=== PATIENT | male | born 1955 | race Caucasian/White ===

== ENCOUNTER 2023-06-15 09:28 | Outpatient (OUT) | payer MEDICARE, OTHER, SELFPAY ==
[2023-06-15 10:25] LABS: Basophils Percent Auto 0.4 % (0.2-2.0); Eosinophils Absolute Auto 0.1 10^3/uL (0.0-0.7); Eosinophils Percent Auto 1.3 % (0.9-7.0); Hematocrit 43.8 % (42.0-54.0); Hemoglobin 14.4 g/dL (14.0-18.0); Immature Granulocytes Abs Auto 0.01 10^3/uL (0.00-0.03); Immature Granulocytes Pct Auto 0.2 % (0.0-0.5); Lymphocytes Absolute Auto 1.6 10^3/uL (1.2-3.8); Lymphocytes Percent Auto 34.8 % (20.5-60.0); Mean Corpuscular HGB Conc 32.9 g/dL (29.9-35.2); Mean Corpuscular Hemoglobin 30.1 pg (25.9-34.0); Mean Corpuscular Volume 91.4 fL (80.0-94.0); Mean Platelet Volume 9.5 fL (9.5-13.5); Monocytes Absolute Auto 0.6 10^3/uL (0.3-0.8); Monocytes Percent Auto 12.4 % (1.7-12.0); Neutrophils Absolute Auto 2.4 10^3/uL (1.4-6.5); Neutrophils Percent Auto 50.9 % (43.0-75.0); Platelet Count 270 10^3/uL (150-450); Red Blood Count 4.79 10^6/uL (4.70-6.10); Red Cell Distribution Width 12.6 % (11.0-15.0); White Blood Count 4.7 10^3/uL (4.0-11.0)
[2023-06-15 10:28] LABS: BUN Creatinine Ratio 19.3; Carbon Dioxide 32.2 mmol/L (21.0-32.0); Chloride 101 mmol/L (98-107); Chol HDL Ratio 3.7; Cholesterol 162 mg/dL (<=200); Estimated GFR (African America >60 (>=60); Estimated GFR (Non-African Ame >60 (>=60); Glucose 129 mg/dL (74-106); HDL Cholesterol 44 mg/dL (40-60); LDL Cholesterol Calculated 89.4 mg/dL; Potassium 4.2 mmol/L (3.5-5.1); Sodium 141 mmol/L (136-145); Triglycerides 143 mg/dL (<=150); VLDL CHOLESTEROL 28.6 mg/dL
[2023-06-15 10:31] LABS: Microalbumin Urine Random <1.3 mg/dL (<=30.0)
[2023-06-15 11:42] LABS: Estimated Average Glucose 128 mg/dL; Glycohemoglobin A1C 6.1 % (4.5-6.2)
== END 2023-06-15 09:29 | disposition home or self-care (01) ==
LOC: LAB 09:33
PROVIDERS: PCP Internal Medicine; Visit Provider Internal Medicine
DX: E11.65 Type 2 diabetes mellitus with hyperglycemia (principal); I10 Essential (primary) hypertension; E78.00 Pure hypercholesterolemia, unspecified; Z12.5 Encounter for screening for malignant neoplasm of prostate
CPT/HCPCS: 36415; 80048; 80061; 82043; 83036; 85025; G0103

== ENCOUNTER 2023-10-01 10:58 | Outpatient (OUT) | payer MEDICARE, OTHER, SELFPAY ==
--- NOTE | 2023-10-01 | XR_ITS ---
The [address] [address] Patient Name: OMER FRIED MRN: [id number] date: 1955 Sex: M Assigned Patient Location: Current Patient Location: Accession/Order Number: [id number] Exam Date: 10/01/2023 11:00 Report Date: 10/01/2023 11:42 At the request of: DEBORAH JIMENEZ Procedure: XR ankle LT min 3V PROCEDURE: XR ankle LT min 3V COMPARISON: None. HISTORY: LEFT ANKLE PAIN FINDINGS: BONES:Contour deformity of the distal tibia and fibula consistent with remote healed fractures. 2 screws through the distal tibial metaphysis. 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 SOFT TISSUES:Moderate soft tissue swelling EFFUSION:None visible. OTHER: Negative. 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
--- OUTSIDE RECORDS SUMMARY | 2023-10-01 11:14 | XMS_ITS | CCD ---
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 Role Phone GUSTABO, DR JOE Admitting Unavailable GUSTABO, DR JOE Attending Unavailable GUSTABO, DR JOE Primary Care Unavailable GUSTABO, DR JOE Consulting Unavailable GUSTABO, DR JOE Admitting Unavailable GUSTABO, DR JOE Attending Unavailable GUSTABO, DR JOE Primary Care Unavailable GUSTABO, DR JOE Consulting Unavailable ANTONIETTA, DR CED Andino Consulting Unavailable Gustabo, Chace Unavailable Magi Greenwood Unavailable Allergies Allergy Classification Reported Allergen(s) Allergy Type Date of Onset Reaction(s) Facility (1 source) Penicillins Drug allergy (disorder) 04-04-20 13 [facility] Repository (7 sources) amLODIPine Drug Allergy Unknown Teravac Other (7 sources) Substance with penicillin structure and antibacterial mechanism of action (substance) Drug allergy Unknown Teravac Other (2 sources) patient allergy list reviewed by nurse or physicia Propensity to adverse reactions 06-09-19 14 Comment:Done Teravac Other Medications Current Medications Medication Drug Class(es) Dates Sig (Normalized) Sig (Original) amLODIPine 5 mg oral tablet (7 sources) Dihydropyridine Calcium Channel Alec amLODIPine Besylate 5 MG TAKE 1 TABLET BY MOUTH EVERY DAY Orally Once a day for 90 days Active doxycycline hyclate 100 mg oral capsule (8 sources) Tetracycline-class Drug Start: 02-26-2023 take 1 capsule by mouth twice daily Doxycycline Hyclate 100 MG 1 capsule Orally twice daily for 10 days Jan, Active etodolac 500 mg oral tablet (7 sources) Nonsteroidal Anti-inflammatory Drug take 1 tablet by mouth twice daily Etodolac 500 MG TAKE 1 TABLET BY MOUTH TWICE A DAY for 90 Active finasteride 5 mg oral tablet (7 sources) 5-alpha Reductase Inhibitor take 1 tablet by mouth every twenty-four hours Finasteride 5 MG 1 tablet Orally Once a day Active Completed/Discontinued Medications Medication Drug Class(es) Dates Sig (Normalized) Sig (Original) OneTouch Ultra - (2 sources) OneTouch Ultra - USE TO TEST BLOOD SUGAR ONCE DAILY for 90 Not-Taking/PRN OneTouch Ultra - USE TO TEST BLOOD SUGAR ONCE DAILY for 90 Active sildenafil 100 mg oral tablet (7 sources) Phosphodiesterase 5 Inhibitor take 1 tablet by mouth every twenty-four hours Sildenafil Citrate 100 MG 1 tablet as needed Orally Once a day Not-Taking/PRN triamcinolone acetonide 40 mg/ml injectable suspension (4 sources) Corticosteroid Start: 2022 Kenalog-40 Jan, 60 mg Problems Active Problems Problem Classification Problem Date Documented Da te Episodic/Chronic Acute bronchitis (1 source) Acute bronchitis due to other specified organisms Episodic Coronary atherosclerosis and other heart disease (13 sources) Coronary artery spasm; Translations: [Angina pectoris with documented spasm] Onset: 09-20-2018 Resolved: 10-02-2019 Chronic Diabetes mellitus with complications (16 sources) Type 2 diabetes mellitus with hyperglycemia; Translations: [Type 2 diabetes mellitus] Onset: 04-21-2022 Chronic Disorders of lipid metabolism (12 sources) Pure hypercholesterolemia ; Translations: [Familial hypercholesterolemia ] Resolved: 10-02-2019 Chronic Esophageal disorders (3 sources) Gastro-esophageal reflux disease with esophagitis; Translations: [Gastroesophageal reflux disease with esophagitis without hemorrhage] Chronic Esophageal disorders (6 sources) Esophageal disorders; Translations: [Gastroesophageal reflux disease with esophagitis without hemorrhage] Essential hypertension (16 sources) Essential (primary) hypertension; Translations: [Essential hypertension] Onset: 04-27-2022 Resolved: 10-02-2019 Chronic Fracture of lower limb (4 sources) Closed fracture of shaft of tibia; Translations: [Closed fracture of shaft of tibia] Episodic Fracture of upper limb (2 sources) Closed fracture of base of thumb; Translations: [Closed fracture of base of thumb (first) metacarpal bone(s)] Episodic Genitourinary symptoms and ill-defined conditions (1 source) Nocturia Episodic Hyperplasia of prostate (8 sources) Nocturia due to benign prostatic hypertrophy; Translations: [Benign prostatic hyperplasia with lower urinary tract symptoms] Chronic Immunizations and screening for infectious disease (2 sources) Vaccination given; Translations: [Encounter for immunization] Episodic Joint disorders and dislocations; trauma-related (9 sources) Traumatic arthropathy of the ankle and/or foot; Translations: [Traumatic arthropathy, right ankle and foot] Onset: 10-04-2015 Chronic Malaise and fatigue (12 sources) Other fatigue; Translations: [Fatigue] Onset: 09-20-2018 Resolved: 10-02-2019 Episodic Osteoarthritis (15 sources) Unilateral primary osteoarthritis, right knee; Translations: [Osteoarthritis of right knee joint] Onset: 08-19-2022 Chronic Other and unspecified benign neoplasm (2 sources) Benign neoplasm of colon; Translations: [Benign neoplasm of colon] Episodic Other connective tissue disease (9 sources) Disorder of soft tissue; Translations: [Other specified soft tissue disorders] Episodic Other diseases of veins and lymphatics (11 sources) Peripheral venous insufficiency; Translations: [Venous insufficiency (chronic) (peripheral)] Onset: 10-04-2015 Resolved: 10-02-2019 Episodic Other diseases of veins and lymphatics (3 sources) Venous insufficiency (chronic) (peripheral) Episodic Other injuries and conditions due to external causes (2 sources) Old healed fracture of bone ; Translations: [Personal history of (healed) traumatic fracture] Episodic Other injuries and conditions due to external causes (2 sources) History of fall; Translations: [History of falling] Episodic Other male genital disorders (9 sources) Impotence of organic origin; Translations: [Erectile dysfunction due to arterial insufficiency] Onset: 09-25-2018 Resolved: 10-02-2019 Chronic Other nutritional; endocrine; and metabolic disorders (2 sources) Obesity; Translations: [Obesity, unspecified] Chronic Other nutritional; endocrine; and metabolic disorders (2 sources) Morbid obesity; Translations: [Morbid (severe) obesity due to excess calories] Chronic Other skin disorders (9 sources) Male pattern alopecia; Translations: [Androgenic alopecia, unspecified] Episodic Other skin disorders (6 sources) Skin tag; Translations: [Other hypertrophic disorders of the skin] Episodic Other skin disorders (6 sources) Inflamed seborrheic keratosis; Translations: [Inflamed seborrheic keratosis] Episodic Other skin disorders (1 source) Other hypertrophic disorders of the skin Episodic Other skin disorders (1 source) Inflamed seborrheic keratosis Episodic Other upper respiratory disease (13 sources) Allergic rhinitis due to pollen; Translations: [Allergic rhinitis due to pollen] Chronic Other upper respiratory disease (1 source) Allergic rhinitis due to pollen Chronic Residual codes; unclassified (9 sources) Obstructive sleep apnea syndrome; Translations: [Obstructive sleep apnea (adult) (pediatric)] Chronic Residual codes; unclassified (3 sources) Obstructive sleep apnea (adult) (pediatric) Chronic Residual codes; unclassified (2 sources) Immunization refused ; Translations: [Immunization not carried out because of patient refusal] Episodic Skin and subcutaneous tissue infections (15 sources) Cellulitis of right lower limb; Translations: [Cellulitis of right lower limb] Onset: 01-26-2014 Resolved: 11-12-2021 Episodic Superficial injury; contusion (9 sources) Abrasion, knee; Translations: [Abrasion, right knee, initial encounter] Episodic Past or Other Problems Problem Classification Problem Date Documented Da te Episodic/Chronic Diabetes mellitus without complication (2 sources) Impaired fasting glycemia; Translations: [Impaired fasting glucose] Resolved: 10-02-2019 Episodic Disorders of teeth and jaw (2 sources) Jaw pain; Translations: [Jaw pain] Onset: 09-04-2015 Resolved: 10-02-2019 Episodic Other ear and sense organ disorders (2 sources) Bilateral tinnitus; Translations: [Tinnitus, bilateral] Onset: 09-04-2015 Resolved: 10-02-2019 Episodic Other endocrine disorders (2 sources) Testicular hypofunction; Translations: [Testicular hypofunction] Onset: 09-20-2018 Resolved: 10-02-2019 Chronic Other nervous system disorders (2 sources) Skin sensation disturbance; Translations: [Other disturbances of skin sensation] Onset: 09-04-2015 Resolved: 10-02-2019 Episodic Other non-epithelial cancer of skin (4 sources) Basal cell carcinoma of truncal skin; Translations: [Basal cell carcinoma of skin of trunk, except scrotum] Onset: 10-29-2014 Resolved: 10-02-2019 Episodic Other nutritional; endocrine; and metabolic disorders (4 sources) Obese class II; Translations: [Body mass index 35.0-35.9, adult] Onset: [birth year]31[birth year]1959 Resolved: 10-02-2019 Chronic Other nutritional; endocrine; and metabolic disorders (2 sources) Abnormal weight gain; Translations: [Abnormal weight gain] Onset: 04-11-2014 Resolved: 10-02-2019 Episodic Other screening for suspected conditions (not mental disorders or infectious disease) (1 source) Encounter for screening for malignant neoplasm of prostate; Translations: [ENC SCREEN MALIG NEOPLASM PROSTATE] Onset: 04-27-2022 Episodic Other upper respiratory disease (2 sources) Seasonal allergic rhinitis; Translations: [Other seasonal allergic rhinitis] Onset: 02-18-2018 Resolved: 10-02-2019 Chronic Other upper respiratory infections (2 sources) Acute maxillary sinusitis; Translations: [Acute recurrent maxillary sinusitis] Onset: 07-20-2017 Resolved: 10-02-2019 Episodic Unclassified (2 sources) Abnormal result; Translations: [Other abnormal clinical finding] Onset: 09-25-2018 Resolved: 10-02-2019 Viral infection (9 sources) Disease caused by 2019-nCoV; Translations: [COVID-19] Results Test Name Value Interpretation Reference Range Facil ity CBC AUTO DIFFon 04-21-2022 BASO # 0.0 103/ul Normal 0.0-0.1 [facility] Comment on above: Performed By: #### C BC #### [facility] [address] [place] [address] Dr. Thelma Carlson Basophils/100 WBC (Bld) 0.4 % Normal 0.2-2.0 [facility] Comment on above: Performed By: #### C BC #### [facility] [address] [place] [address] Dr. Thelma Carlson EO # 0.1 103/ul Normal 0.0-0.7 [facility] Comment on above: Performed By: #### C BC #### [facility] [address] [address] [address] Thelma Carlson Eosinophils/100 WBC (Bld) 2.6 % Normal 0.9-7.0 [facility] Comment on above: Performed By: #### C BC #### [facility] [address] [place] [address] Dr. Thelma Carlson Erythrocyte distribution width (RBC) [Ratio] 12.6 % Normal 11.0-15.0 [facility] Comment on above: Performed By: #### C BC #### [facility] [address] [place] [address] Dr. Thelma Carlson Hematocrit (Bld) [Volume fraction] 43.0 % Normal 42.0-54.0 [facility] Comment on above: Performed By: #### C BC #### [facility] [address] [address] [address] Thelma Carlson Hemoglobin (Bld) [Mass/Vol] 14.7 g/dL Normal 14.0-18.0 [facility] Comment on above: Performed By: #### C BC #### [facility] [address] [place] [address] Dr. Thelma Carlson IG # 0.01 10e3/ul Normal 0.00-0.03 [facility] Comment on above: Performed By: #### C BC #### [facility] [address] [place] [address] Dr. Thelma Carlson IG % 0.2 % Normal 0.0-0.5 [facility] Comment on above: Performed By: #### C BC #### [facility] [address] [place] [address] Dr. Thelma Carlson LYMPH # 1.7 103/ul Normal 1.2-3.8 [facility] Comment on above: Performed By: #### C BC #### [facility] [address] [place] [address] Dr. Thelma Carlson Lymphocytes/100 WBC (Bld) 34.4 % Normal 20.5-60.0 [facility] Comment on above: Performed By: #### C BC #### [facility] [address] [place] [address] Dr. Thelma Carlson MANUAL DIFF REQ NO Normal [facility] Comment on above: Performed By: #### C BC #### [facility] [address] [place] [address] Dr. Thelma Carlson MCH (RBC) [Entitic mass] 29.9 pg Normal 25.9-34.0 [facility] Comment on above: Performed By: #### C BC #### [facility] [address] [place] [address] Dr. Thelma Carlson MCHC (RBC) [Mass/Vol] 34.2 g/dL Normal 29.9-35.2 [facility] Comment on above: Performed By: #### C BC #### [facility] [address] [address] [address] Thelma Carlson MCV (RBC) [Entitic vol] 87.4 fL Normal 80.0-94.0 [facility] Comment on above: Performed By: #### C BC #### [facility] [address] [address] [address] Thelma Carlson MONO # 0.6 103/ul Normal 0.3-0.8 [facility] Comment on above: Performed By: #### C BC #### [facility] [address] [address] [address] Thelma Carlson Monocytes/100 WBC (Bld) 11.7 % Normal 1.7-12.0 [facility] Comment on above: Performed By: #### C BC #### [facility] [address] [address] [address] Thelma Carlson NEUT # 2.6 103/ul Normal 1.4-6.5 [facility] Comment on above: Performed By: #### C BC #### [facility] [address] [address] [address] Thelma Carlson Neutrophils/100 WBC (Bld) 50.7 % Normal 43.0-75.0 [facility] Comment on above: Performed By: #### C BC #### [facility] [address] [address] [address] Thelma Carlson Platelet mean volume (Bld) [Entitic vol] 9.0 fL Critically low 9.5-13.5 [facility] Comment on above: Performed By: #### C BC #### [facility] [address] [address] [address] Thelma Carlson PLT 228 103/ul Normal 150-450 [facility] Comment on above: Performed By: #### C BC #### [facility] [address] [address] [address] Thelma Carlson RBC 4.92 106/ul Normal 4.70-6.10 [facility] Comment on above: Performed By: #### C BC #### [facility] [address] [address] [address] Thelma Carlson WBC 5.1 103/ul Normal 4.0-11.0 [facility] Comment on above: Performed By: #### C BC #### [facility] [address] [place] [address] Dr. Thelma Carlson GLYCOHEMOGLOBIN A1Con 2021 ADA RECOMMENDATION SEE BELOW Normal [facility] Comment on above: Result Comment: ADA RECOMMENDED LIMIT 4.0 - 6.0 ADA THERAPEUTIC TARGET < 7.0 ACTION SUGGESTED > 7.0 Performed By: #### A 1C #### [facility] [address] [place] [address] Dr. Thelma Carlson Glucose [Mass/Vol] 131 mg/dL Normal [facility] Comment on above: Performed By: #### A 1C #### [facility] [address] [place] [address] Dr. Thelma Carlson HbA1c (Bld) [Mass fraction] 6.2 % Normal 4.5-6.2 [facility] Comment on above: Performed By: #### A 1C #### [facility] [address] [place] [address] Dr. Thelma Carlson MICROALBUMIN, RAND URon 04-01 mALB <1.3 Normal <=30.0 [facility] Comment on above: Performed By: #### M ALBR #### [facility] [address] [place] [address] Dr. Thelma Carlson PROF CHEM 8 (BAS METB)on Anion gap [Moles/Vol] 14.4 mmol/L Normal [facility] Comment on above: Performed By: #### T SH, BMP #### [facility] [address] [place] [address] Dr. Thelma Carlson Calcium [Mass/Vol] 9.6 mg/dL Normal 8.5-10.[address] [facility] Comment on above: Performed By: #### T SH, BMP #### [facility] [address] [place] [address] Dr. Thelma Carlson Chloride [Moles/Vol] 102 mmol/L Normal 98-107 [facility] Comment on above: Performed By: #### T SH, BMP #### [facility] [address] [place] [address] Dr. Thelma Carlson CO2 [Moles/Vol] 27.1 mmol/L Normal 21.0-32.0 [facility] Comment on above: Performed By: #### T SH, BMP #### [facility] [address] [place] [address] Dr. Thelma Carlson Creatinine [Mass/Vol] 1.00 mg/dL Normal 0.70-1.30 [facility] Comment on above: Performed By: #### T SH, BMP #### [facility] [address] [place] [address] Dr. Thelma Carlson EGFR-AF PORTUGUESE >60 Normal >=60 [facility] Comment on above: Performed By: #### T SH, BMP #### [facility] [address] [place] [address] Dr. Thelma Carlson EGFR-NON AF PORTUGUESE >60 Normal >=60 [facility] Comment on above: Performed By: #### T SH, BMP #### [facility] [address] [place] [address] Dr. Thelma Carlson Glucose [Mass/Vol] 142 mg/dL Critically high 74-106 [facility] Comment on above: Performed By: #### T SH, BMP #### [facility] [address] [place] [address] Dr. Thelma Carlson Potassium [Moles/Vol] 4.5 mmol/L Normal 3.5-5.1 [facility] Comment on above: Performed By: #### T SH, BMP #### [facility] [address] [place] [address] Dr. Thelma Carlson Sodium [Moles/Vol] 139 mmol/L Normal 136-[address] [facility] Comment on above: Performed By: #### T SH, BMP #### [facility] [address] [place] [address] Dr. Thelma Carlson Urea nitrogen [Mass/Vol] 25.0 mg/dL Critically high 7.0-18.0 [facility] Comment on above: Performed By: #### T BRADFORD, BMP #### [facility] [address] [address] [address] Thelma Carlson Urea nitrogen/Creatinine [Mass ratio] 25.0 mg/mg Normal [facility] Comment on above: Performed By: #### T BRADFORD, BMP #### [facility] [id number] Thelma Carlson TSHon 04-21-2022 TSH 2.012 uIU/mL Normal 0.358-3.740 [facility] Comment on above: Performed By: #### T BRADFORD, BMP #### [facility] [address] [address] [address] Thelma Carlson Coding Summaryon 11-13-2021 Coding Summary HTMLBase 64 ExdnauvtBGh1gQo+PGh lYWQ+ZM7UVFElY44imM VptB6YO4lWJJ5OIFUQM EUVLR9OJD7gtTU4LQrd V1QntlZl VifakWLzJT53OAu4BGW 5xByzKAczfI9plKPmG3 p8MeMiKW89jJ48ZMroC YGjFlI8IiFfokgspTZk S6ptLbPxxMCgClw+PHR hYmxlIHdpZHRoPScxMD SoZsTzpMvcNU3mDy2xX GVyLWNvbGxhcHNlOiBj s3gzVKFyINzmZK5ldPq nF6BvtJD7LAVkz8n2Ce 48dHI+WLLzYWW0nYkrH Mqmk665SvRbj7yjGYC9 xPGpSCcuILG6R22sf2L 0MMMjOXPwBXW1pXD5dH 6xmWbbvqmeF4HihPBhW iR2IIR0rYPwfY4enDxs lhnazA0xBap+H84FED7 IKUUTZI2IJjq7O5LlPv wvdHI+SC15DEFrVO69c LPnqCJtn6omdYb7HvFa PCYqGME7kOesCLkvf5D yKBUzF68gyOPgw4T1TK IihQiysWLlYdCuzPS2u R8jWIkbbjijq8aaocna Encgn3ubej21fQ51B51 dCEajTUQgPMR9LTHgYW TqrKkxjp7znA1fWw1+I Yjby7wfk5hysYp3GgMi RSRnsuUwyVcjKNE4t1O nNh38N0ZvqXfmj4WrJw e5vz09sBOuy5E8uFS8Z QfcDRUulJ6vHBqrQfV5 LZStEhFmeC32tWWeMKc oQc3gkXomxDdzKZ7nWC MkzpubTDJqnD7hBOUvv CRgjSedZB5pNVJhlcjp y937SvKaCCE8NQOytVJ zG9MizH6mCnVfCPXdVT XmY0OitDOxEDqjU572V DfbFpN6UADmglRjN8Cq TKCdxAyyByD6n7R0Pg1 Ti4KsplcuDTV5HZwyZC L4CkJ1DnCnGsY0P0EbG ny3GPTsnSgkAU0hK5Ww OHAorqkdxugixNR4MOR dJGVfzH47vVUlEWmcZe 9wa2E5w273KQRsFGSpq Z52Gj2leMqpMUAtfDGW oH4wgdqhl3geldsmFsM gFZErSLx6JDh4HEQenF thXbVhNJX2GyD7CES8k KWykL8vcBwvzacsdP1b Oyc+X18tyD2tXXU0LFS 8wmbxMYGgmuBwMM12WX 16A9MmCesfsBNcvTV+P AVhqqWwdXfhSU6sXjVm q2ikd7DoGLjrN5AvVRZ dUXhiYfc1XVLqENA8uB F1oE9qCODgCYcny7T7u IR2L0HfxuRlue8dg0rt RDNqJAukB61qnORwt0F 0OVFzpCG4AHOtyGwaZk DtpP93Ayx+PGNvbGdyb 8RlFbnyy0dlb2iykTm2 IjMwJSIgdmFsaWduPSJ 8q2JxMt44B68qNTrzCF RoPSIxNSUiIHZhbGlnb n9sxL1wZh4+PGNvbCB3 fUQ8yW4mHCZkHwB7WOg jA022GgEsvFDfGjbpz8 ggb1yccOe9VdFqCSRhv iEfbKrsXUR4s3DtGa46 X27bMQxcEDEhJJHxBZO yCQCnwKfuug9hyT1bZp 8+DX7hk9sbpn32pZ87q HI+DUIjIKO6aQgaDVqq NMFfdS5vLXdfTiA6WCE uZtVqhN10kJAfOCzhWb 2xvOlbgSikPP4tRLEdg janr690HsNhy1emSKQq zZZtMQpgQEW3L29mp4H 2GXBbBVGvAGL6yAE5cP 1hbGlnbjogbGVmdDsgd jApsQswKGxkUTiwA279 IHRvcDsnPlBhdGllbnQ mHhFoYOu5L5XqTkr0PU JfoYlaFC2daLLvEUmuM b0npTsxlPrnQZ4lRRFy xnnfz267AzQao7jqCQI whQDdWCquBIX9I35it5 P9XULqZDFbKZS3uGH3q F0phMdzbzcwvFJkbEek nyRggQpkSJacELgoM76 6IHRvcDsnPkJpcnRoIE QvnXB0QG20GA62wZHmz 7A3jZH6D5XmXXVbntoa enqobLS4RHLvWHGuaT2 1Ln9ykAjyWq3nPMXeZD L1SWGruPPsT6GpxW2zZ qWzRDKwEJUbG4KdvYHe BFauG149ZUvdBmB0YDN yjvDjM7CmGYKoyZbvDz D2b8Y2Nh8AU5D9LT29S B54dYRgv7B1aQL7A1Cd TMUckfmvatuxeCU3AHQ mIBRwhA62Ch8toLooYv 6sXBYxABB4ZXNdaZFyY 1ZymH1nQeSrVSJeQPJj A9GlrKRlJJmnZ568RWg xGvG9KWGcpjGeC1DkYX KjnJwnEoE1w4U5Rt6UQ Xg7QK82GW63zSBdg8U3 bOV4E8VlQVLmrhqyvwp ezRY3MVRwNLSitG51Eh 8czHvmAg7wLNVlSAQ1E NSjhTFaG7TvcB3aOlNv HJFtEIXzF6QpkZJkLZm nP556FHwzLjH4KDKwxe RgT5VjPRZunOhgVyB0j 5H3Vm2FUOCyWL16EXG1 aVD3PM21XZ58C5KbYbu vdGFibGU+PHRhYmxlIH dpZHRoPScxMDAlJyBzd ObpFJ9iZy7yCVYbNMZj jPvcqNAjAaQki6nhINK iUZagLJ1qbHacR3FrtO S2GTCwi7r5St46G13yN 3JvdXA+ZWVzrCX5sGD8 fG6dFsKpIwF9EInyA91 9CsTcmLSqOxzdh1abp2 zgrKv4YdK4TFUhooMbn SapYTY1p7YpZk14M54h IHdpZHRoPSIxNSUiIHZ gcFrwyq1fvS9uIn5+PG LtdBB1cAY2xH3eNgBvX sI3BCnyV153OvEtoMEg Hiexk7zbq6uggKs4SmD qHFRkrnMwvIouYVG2d7 LmGk34G7NxhYoig8UqX bb3cz64vQXqi8D4oTO6 C8YiUAYzlgyroGSqkOj jCD9bJNMowfalIZQogK 6bZQAxW5p2VgPtHvQ3X CwzM3EuhtK7TNFmlWLb JCoyPWQ0I38ae3S1FYJ yQWYwHKZ0vJM8oV7deF lnbjogbGVmdDsgdmVyd JrpVZuiLSgsZ046WPNx wNxtHUIjaN6uRZIfpPK yhLwwRM2uQPNpzdgkYb 4ZCCoFOzleVj6OWANlQ TwvdGQ+EMDwKLD3cLia PXizEEKudM4fCTZkQ5w 0IuFxLzA0UGhdV1XdIP DerrpsLx49iS3lPpNzA jC5AFaxS8AbhjY4AUAm jKFcGBvcOIA1X67of0P 5ELZgXKFsNYW0gCN4jZ 1hbGlnbjogbGVmdDsgd cRerJvyAJemSEheK198 BAVmhPkyScM9XbSdXuP 4JNS1Z0ZxIgh7ZRBauQ uhJA0cqZYhAAciHs7bx DakkKapXO9nBJCukldc WUKznS3dVGCoiBAevDn pMO0tCYXtobmqr905Qn YtYIE2JBVspPXtT6Fal O9tImLwGYPtOBJuN6Vp zEQlELueA062QFibXwI 3ZMFamsPkY5HcXVFnqW jzOdZ4k6K8Sq76ZbSQV WFyczwvdGQ+PHRkIHN0 pOdzWCcxUDHfqY0sLEU oK0p4PuQbEvL7KIofR6 GmEZHhveakHh89dA0iF iKoUjW8MGdyH8UvmlZ4 ZVHluMWyXOsgMEW2L92 za8Q8PLDvGMFrJKL6xW R3kJ6bxKalzlzhvQSdi DsgdmVydGljYWwtYWxp X973IQWqbMldZg5LPXF 6Z9OhRtb3LZEqkNvcXM 4rmESyQMefNt1klBjqb YmrWC4kGBQxgtppLTQq aF7lZWAqjJPhbXsuBM9 cVPJsknsez454OvMjJD A7RAPncQRpB8VjcJ9xJ vOhIBHxLXHdE0XihURd AQztB643LLtlBvN3OVT ftePfN4TkTOXpbWygGy M8m2J0Si2UQBhgpTT+P M42ck93K4ZsWnioBqh7 ODAkZUS4hYM1yY3iFMD cDFbnp9T7bGT0F3Rjxe Bvgs6zb1vdLWFkOKxsF 73vsHLsm0R1OZGemCQ0 EZRntBwhIvSwtC99Wnl +YPWkaAmbs0NhXaywo2 nlz5vluGq4NbEoXTRea eLnxNmnTOU7a3CsIy47 U05hMLcaJFQgXWLoEKO xTUEwbLfmgg9gxL5nEj 8+OFUsiKL9hFQ8xZ1tX iWcSoS5BDsgD786QhDy mFGmXlvpq4foz3dwgMx 9IjIwJSIgdmFsaWduPS T8i0QsEs33A5WldLswc 8XjZwg5nk30uCMmm1A2 sUJ3B0QaSVZiwyctaPV fqEcyBL9vMIIpvojzNC KtgB5dHIMaG7v8DxAlC kE6WFisV6JvblI2YOJw tEBvOZWpyTRBpE0rxef qo8zbimvbRdJwTBClLS v7QRb4IXUffXijSpUuP WY6PbE6QZR2kNCtmW5m jRbiqakkaP7aJsa+UGh 0y0zttDMwQD9fjVI3HD 54EX08eUMvk4S5sTO1R 4CjVJTnajbmtibbcDV0 SHAfUKWhaF27Fi5vbRq fBb0kCJEgBDZ2FUJpqB SbX3UfsA6fKeDcROMdT CCcO3VlfLCbAIczM000 OJrqPuV6EINhdrHfS7D iCCXyiJkzGvW4f9C7Qa 3PVW50VC33HQ15nQRzl 6X3rUT9L1LgNONnzbnv mvqxkCN4OCGfXYMpkD0 7Cc7txNzuNy7zRTIpKW U3VXXywGCgM8WjuE7hT hHfQOSnUVMvN6IngYKu EVogS638YUjrDlJ4KTH xcuIwZ4TdXWLeaYymOs Q4t8T0Eb0ABo87TD85D E43vCOuk4B3xBJ7X2Ox DRTrmvpsjoiijQX6NJT bDQYyjG70Om3irFtfCa 0bWCKoCXH5SDWwpSTmW 4WubN3vUrBlVSHwUWDl Z1JjgQJmIBdhB220SCx vVfR6BXKubgLcJ1ZmMQ KgkLicAlO0a9D0Mt2WP Cnzplp3S2KuUqxljYH+ TV87GVZeWJ52qFDcyBJ rw5xqwWk5RqSyAQFbIF F0gFslEPfpv0ZgRVDeN 85ekLUnw1D7MPGtvAyy cHN (more content not included)... [facility] [facility] 11-13-2021 Provider Orders [id number] [facility] US LE Venous Duplex [place] 11-10-2021 US LE Venous Duplex Right EXAMINATION: US LE Venous Duplex Right HISTORY: Venous insufficiency (chronic) (peripheral) COMPARISON: None. TECHNIQUE: Venous duplex examination performed using B-mode, color flow and spectral analysis. FINDINGS: The segmentally visualized right lower extremity venous vasculature is patent on grayscale imaging with normal compressibility. Color Doppler imaging and normal augmentation with spectral waveform analysis. There is subcutaneous edema below level the knee. There are a few lymph nodes within the right groin there aren't the upper normal limits measuring 2.8 x 1.4 x 0.7 cm, 2.1 x 1.1 x 1.5 cm and 0.9 x 0.8 x 1.0 cm. Mild skin thickening at the area of concern overlying the medial right knee, where there has been a palpable lump. No visualized fluid collection/abscesse s.. IMPRESSION: 1. Negative for right lower extremity DVT/SVT. 2. Borderline enlarged right groin lymph nodes 3. Mild skin thickening/soft tissue thickening at the area of concern along the right knee compared to the left. Visualized loops collections/abscess es. Final Dictated by: Osvaldo Valdez Dictated DT/TM: 11/10/21 5:41 Signed (Electronic Signature): Osvaldo Valdez 11/10/21 5:45 pm Technologist: [facility] Vital Signs Date Time Vital Sign Value Performing Clinician Facility 02-26-2023 08:30-0400 Body height 170.18 cm Chace Ball Other [facility] Other 02-26-2023 08:30-0400 Body mass index (BMI) [Ratio] 35.96 kg/m2 Chace Ball Other [facility] Other 02-26-2023 08:30-0400 Body weight 104.15 kg Chace Ball Other [facility] Other 02-26-2023 08:30-0400 Diastolic blood pressure 90 mm[Hg] Chace Ball Other [facility] Other 02-26-2023 08:30-0400 Respiratory rate 12 /min Chace Ball Other [facility] Other 02-26-2023 08:30-0400 Systolic blood pressure 157 mm[Hg] Chace Ball Other [facility] Other 08-25-2022 16:00-0400 Body height 170.18 cm Chace Ball Other [facility] Other 08-25-2022 16:00-0400 Body mass index (BMI) [Ratio] 38.02 kg/m2 Chace Ball Other [facility] Other 08-25-2022 16:00-0400 Body weight 110.13 kg Chace Ball Other [facility] Other 08-25-2022 16:00-0400 Diastolic blood pressure 84 mm[Hg] Chace Ball Other [facility] Other 08-25-2022 16:00-0400 Respiratory rate 12 /min Chace Ball Other [facility] Other 08-25-2022 16:00-0400 Systolic blood pressure 148 mm[Hg] Chace Ball Other [facility] Other 08-19-2022 09:30-0400 Body height 170.18 cm Chace Ball Other [facility] Other 08-19-2022 09:30-0400 Body mass index (BMI) [Ratio] 38.09 kg/m2 Chace Ball Other [facility] Other 08-19-2022 09:30-0400 Body weight 110.32 kg Chace Ball Other [facility] Other 08-19-2022 09:30-0400 Diastolic blood pressure 86 mm[Hg] Chace Ball Other [facility] Other 08-19-2022 09:30-0400 Respiratory rate 12 /min Chace Ball Other [facility] Other 08-19-2022 09:30-0400 Systolic blood pressure 146 mm[Hg] Chace Ball Other [facility] Other Encounters Encounter Date Encounter Type Care Provider Facility Start: 06-16-2023 End: 06-16-2023 ambulatory Chace Ball Other [facility] Other Start: 06-16-2023 Telephone encounter Chace Montejo [facility] Start: 02-26-2023 End: 02-26-2023 ambulatory Chace Montejo Other [facility] Other Start: 02-26-2023 Office outpatient vi sit 25 minutes Chace Montejo [facility] Start: 02-08-2023 End: 02-08-2023 ambulatory Magi Greenwood Other [facility] Other Start: 02-08-2023 Nursing evaluation o f patient and report Magi Greenwood [facility] Start: 12-25-2022 End: 12-25-2022 ambulatory Chace Montejo Other [facility] Other Start: 12-25-2022 Telephone encounter Chace GALO [facility] Start: 08-25-2022 End: 08-25-2022 ambulatory Chace Montejo Other [facility] Other Start: 08-25-2022 Office outpatient vi sit 15 minutes Chace Montejo [facility] Start: 08-19-2022 Office outpatient vi sit 25 minutes Chace Montejo [facility] Start: 08-19-2022 End: 08-20-[address] CHACE MONTEJO Facility:[facility] Start: 04-21-2022 Adult health examination Chace Montejo Other [facility] Other Start: 04-21-2022 End: 04-22-[address] CHACE MONTEJO Facility:[facility] Procedures Date Procedure Procedure Detail Performing Clinician Start: 04-21-[address] ALBERTO IN [place] Comment on above: Performed By: #### [facility] #### [facility] [address] [place] [address] Dr. Thelma Carlson Start: 09-20-2018 End: 10-02-2019 General examination of patient Chace Montejo Other Start: 09-20-2018 End: 10-02-2019 Screening for malignant neoplasm of prostate Chace Montejo Other Depression screening Bennie Montejo Other Screening for malign ant neoplasm of colon Chace Montejo Other Screening for malign ant neoplasm of prostate Chace Montejo Other Immunizations Immunization Date Immunization Notes Care Provider Mary evansmel 02-26-2023 influenza, high dose seasonal, preservative-free Chace Montejo Other [facility] Other 04-21-2022 influenza virus vaccine, split virus (incl. purified surface antigen) Chace Montejo Other [facility] Other 04-21-2022 Prevnar 20 Chace Montejo Other [facility] Other 11-14-2021 tetanus and diphther ia toxoids, adsorbed, preservative free, for adult use (5 Lf of tetanus toxoid and 2 Lf of diphtheria toxoid) Chace Montejo Other [facility] Other 08-31-2021 COVID-19 Vaccine Moderna - Documentation Purposes Only Chace Montejo Other [facility] Other 03-24-2021 COVID-19 Vaccine Moderna - Documentation Purposes Only Chace Montejo Other [facility] Other pneumococcal Conjuga te, unspecified formulation; Translations: [Need for prophylactic vaccination against Streptococcus pneumoniae (pneumococcus)] Chace Montejo Other [facility] Other Payers Date Payer Category Payer Medicare [id number] 1960 Unknown [id number] 1955 Unknown [id number] 1955 Unknown [id number] Social History Date Type Detail Facility Sex Assigned At [facility] Other Evaluation note 02-26-2023 Note Date & Type Note Facility 02-26-2023 Evaluation note Encounter Date Diagnosis Assessment Notes Jan, Primary hypertension (ICD-10 - I10) This patient is instructed to consume a healthy, low-fat, low-salt diet. They are also encouraged to continue exercise to achieve/maintai n a normal BMI. He has been off his medication for 1 wk. Restart and monitor closely Patient is instructed on home BP measurements: - rest for 5 minutes w/o talking- positioned w/ feet on floor and arm supported- average best 2/3 readings w/ goal < 135/85 _update office in 2 wks Jan, Type 2 diabetes mellitus with hyperglycemia, without long-term current use of insulin (ICD-10 - E11.65) This patient is following a comprehensive diabetic treatment plan. They are checking their feet daily for calluses and nonhealing ulcers. They are being seen for yearly dilated eye examinations. Goals: SBP less than 130, LDL less than 100, FBS less than 140, A1C less than 7%. They are checking their BS daily, will which are reviewed at the office visit. Continue regular routine monitoring of A1C,] Microalbumin, Dilated eye exam and Foot exam Jan, MILDRED (obstructive sleep apnea) (ICD-10 - G47.33) This patient is aware of the benefits associated with MILDRED: With continued use, the patient reduces the risk for LA, CVA, HTN, cardiac dysrhythmias and sudden cardiac deaths.The patient is also aware of the association between MILDRED and morning headaches, daytime somnolence, fatigue and obesity, which also has been improved with continued use.The patient is compliant with treatment, wearing the equipment every night for greater than 4 hours.The patient is instructed to continue use of the CPAP for MILDRED treatment. Jan, Chronic venous insufficiency (ICD-10 - I87.2) Avoid salt and elevate lower extremities, support stockings, inspect legs and feet daily for blisters and ulcerations. Jan, Cellulitis of right lower extremity (ICD-10 - L03.115) Elevate, warm compresses and initiate antibiotics. Avoid prolonged standing or sitting. Notify office w/ any blisters or skin breaks. Begin Doxycycline Jan, Primary osteoarthritis of right knee (ICD-10 - M17.11) Quad exercises, ice/heat and rest. Avoid squatting or kneeling. IA injection, PT for severe discomfort [facility] Other Evaluation note 02-08-2023 Note Date & Type Note Facility 02-08-2023 Evaluation note Encounter Date Diagnosis Assessment Notes Jan, Seasonal allergic rhinitis due to pollen (ICD-10 - J30.1) [facility] Other Evaluation note 08-25-2022 Note Date & Type Note Facility 08-25-2022 Evaluation note Encounter Date Diagnosis Assessment Notes Jul, Primary hypertension (ICD-10 - I10) This patient is instructed to consume a healthy, low-fat, low-salt diet. They are also encouraged to continue exercise to achieve/maint ain a normal BMI. Jul, Primary osteoarthritis of right knee (ICD-10 - M17.11) Quad execises, ice/heat and Tylenol. Continue Lodine IA injection if desires Jul, Inflamed skin tag (ICD-10 - L91.8) Jul, Seborrheic keratoses, inflamed (ICD-10 - L82.0) [facility] Other Evaluation note 08-19-2022 Note Date & Type Note Facility 08-19-2022 Evaluation note Encounter Date Diagnosis Assessment Notes Jul, Primary hypertension (ICD-10 - I10) This patient is instructed to consume a healthy, low-fat, low-salt diet. They are also encouraged to continue exercise to achieve/maintai n a normal BMI. Jul, Type 2 diabetes mellitus with hyperglycemia, without long-term current use of insulin (ICD-10 - E11.65) This patient is following a comprehensive diabetic treatment plan. They are checking their feet daily for calluses and nonhealing ulcers. They are being seen for yearly dilated eye examinations. Goals: SBP less than 130, LDL less than 100, FBS less than 140, AC and A1C less than 7%. They are checking their BS daily, will which are reviewed at the office visit. A1C: Jul, MILDRED (obstructive sleep apnea) (ICD-10 - G47.33) This patient is aware of the benefits associated with MILDRED: With continued use, the patient reduces the risk for LA, CVA, HTN, cardiac dysrhythmias and sudden cardiac deaths.The patient is also aware of the association between MILDRED and morning headaches, daytime somnolence, fatigue and obesity, which also has been improved with continued use.The patient is compliant with treatment, wearing the equipment every night for greater than 4 hours.The patient is instructed to continue use of the CPAP for MILDRED treatment. Jul, Primary osteoarthritis of right knee (ICD-10 - M17.11) Quad exercises, bracing, ice/heat and Tylenol. XR to determine degree of OA. Referral to Ortho Jul, Acute bronchitis due to other specified organisms (ICD-10 - J20.8) Instructed to use Robitussin or Mucinex for cough, saline or Flonase NS for congestion, Tylenol for pain and fever. Has Doryx at home, instructed to take 100mg bid x 5 days Jul, Chronic venous insufficiency (ICD-10 - I87.2) Avoid salt and elevate lower extremities, support stockings, inspect legs and feet daily for blisters and ulcerations. Jul, Nocturia (ICD-10 - R35.1) Jul, Benign prostatic hyperplasia with lower urinary tract symptoms (ICD-10 - N40.1) Symptoms tolerable. Yearly PSA [facility] Other Clinical Note 08-19-2022 Note Date & Type Note Facility 08-19-2022 Note PROCEDURE: XR KNEE R T 3V HISTORY: Idiopathic osteoarthritis COMPARISON: None. FINDINGS: BONES:Moderate narrowing of the medial joint space. Small degenerative osteophytes along the margins of the patella. No fracture, dislocation, bone lesion. SOFT TISSUES:No visible soft tissue swelling. EFFUSION:None visible. OTHER: Negative. IMPRESSION: 1. No acute bone abnormality. 2. Moderate degenerative changes of the medial compartment; mild involving the anterior compartment. Electronically authenticated by: CED MANE Date: 2022-08-19 10:37 [facility] Evaluation note Note Date & Type Note Facility Evaluation note No Information [employer] Other History general Narrative - Reported Note Date & Type Note Facility History general Narrative - Reported Type Medical History Cellulitis of leg, right Medical History Traumatic arthritis of right ank le Medical History COVID Medical History Abrasion of right kn ee, initial encounter Medical History Right leg swelling Medical History Erectile dysfunction due to arterial insufficiency Medical History Male pattern baldness Medical History Acute allergic rhini tis due to pollen Medical History Gastroesophageal ref lux disease with esophagitis without hemorrhage Medical History Coronary artery spasm Medical History Fatigue Medical History Hyperlipidemia type II Surgical History TONSILLECTOMY Surgical History HERNIA REPAIR 2012 Surgical History APPENDECTOMY Surgical History SEPTOPLASTY Surgical History ETHMOIDECTOMY Surgical History PRIF LEFT TIBIA/FIBULA FX Surgical History COLONOSCOPY Surgical History C Hospitalization History SEE SURGICAL HX [facility] Other Summary Purpose Family History No Family History Records FoundNo Family History Records Found Advance Directives No Advanced Directives Records FoundNo Advanced Directives Records Found Additional Source Comments (unrecognized sect ion and content) No Status Records FoundNo Status Records Found INFORMATION SOURCE (unrecogn ized section and content) DATE CREATED AUTHOR 11/14/2021 [facility] DATE CREATED AUTHOR AUTHOR'S ORGANIZ ATION 08/23/2022 [facility] REASON FOR VISIT (unrecogniz ed section and content) 4 MONTH FOLLOW UP1 wk follow upConcernsAllergy Shot6 month Follow up6 month Follow upLab results FOR RECORDS PERTAINING TO PATIENTS WHO ARE OR HAVE BEEN ENROLLED IN A CHEMICAL DEPENDENCY/SUBSTANCEABUSE PROGRAM, SOME INFORMATION MAY BE OMITTED. This clinical summary was aggregated from multiple sources. Caution should be exercised in using it in the provision of clinical care. This summary normalizes information from multiple sources, and as a consequence, information in this document may materially change the coding, format and clinical context of patient data. In addition, data may be omitted in some cases. CLINICAL DECISIONS SHOULD BE BASED ON THE PRIMARY CLINICAL RECORDS. [employer] provides no warranty or guarantee of the accuracy or completeness of information in this document.
== END 2023-10-01 10:59 | disposition home or self-care (01) ==
LOC: EC 10:58
PROVIDERS: PCP Internal Medicine; Visit Provider Podiatrist Foot & Ankle Surgery
DX: M25.572 Pain in left ankle and joints of left foot (principal); M19.272 Secondary osteoarthritis, left ankle and foot
CPT/HCPCS: 73610

== ENCOUNTER 2024-02-14 11:19 | Outpatient (OUT) | payer MEDICARE, OTHER, SELFPAY ==
--- NOTE | 2024-02-14 11:33 | US_ITS ---
[facility] [place] [id number] Patient Name: OMER FRIED MRN: [id number] date: 1955 Sex: M Assigned Patient Location: LAB Current Patient Location: LAB Accession/Order Number: [id number] Exam Date: 02/14/2024 11:35 Report Date: 02/14/2024 12:04 At the request of: TATYANA MONTEJO Procedure: US venous doppler LE RT CLINICAL DATA: Right leg swelling PROCEDURE: Right lower extremity venous duplex ultrasound. TECHNIQUE: Joyce-scale, color flow, and waveform spectral analysis was performed of the right lower extremity. FINDINGS: The right common femoral, profunda femoral, femoral, and popliteal veins were compressible. The saphenous vein was compressible. No venous thrombosis was seen. The veins fill with color Doppler. Augmentation was normal. Edema was noted. US/US venous doppler LE RT IMPRESSION: 1. No acute lower extremity deep venous thrombosis. 2. No superficial venous thrombosis. Electronically authenticated by: Edith BURR Date: 02/14/2024 12:04
--- OUTSIDE RECORDS SUMMARY | 2024-02-14 11:33 | XMS_ITS | CCD ---
Author Organization [facility] Care Team Providers Care Quality Control Auditor Name Role Phone GUSTABO, DR JOE Admitting [...] Allergy Type Date of Onset Reaction(s) Facility amLODIPine (1 source) amLODIPine Drug Allergy 06-15-19 24 [facility] Penicillins (antibiotic) (1 source) Penicillins Drug Allergy 06-15-19 24 [facility] (1 source) Penicillins Drug allergy (disorder) 04-04-20 13 [facility] Repository (7 sources) amLODIPine Drug Allergy Unknown [facility] Other (7 sources) Substance with penicillin structure and antibacterial mechanism of action (substance) Drug allergy Unknown [facility] Other (2 sources) patient allergy list reviewed by nurse or physicia Propensity to adverse reactions 06-09-19 14 Comment:Done [facility] Other Medications Current Medications Medication Drug Class(es) [...] 04-21-2022 BASO # 0.0 103/ul Normal 0.0-0.1 [facility] Comment on above: Performed By: #### C BC #### [facility] [address] [place] [address] Dr. Thelma Carlson Basophils/100 WBC (Bld) 0.4 % Normal 0.2-2.0 [facility] Comment on above: Performed By: #### C BC #### [facility] [address] [place] [address] Dr. Thelma Carlson EO # 0.1 103/ul Normal 0.0-0.7 [facility] Comment on above: Performed By: #### C BC #### [facility] [address] [address] [address] Thelma Carlson Eosinophils/100 WBC (Bld) 2.6 % Normal 0.9-7.0 [facility] Comment on above: Performed By: #### C BC #### [facility] [address] [place] [address] Dr. Thelma Carlson Erythrocyte distribution width (RBC) [Ratio] 12.6 % Normal 11.0-15.0 [facility] Comment on above: Performed By: #### C BC #### [facility] [address] [place] [address] Dr. Thelma Carlson Hematocrit (Bld) [Volume fraction] 43.0 % Normal 42.0-54.0 [facility] Comment on above: Performed By: #### C BC #### [facility] [address] [place] [address] Dr. Thelma Carlson Hemoglobin (Bld) [Mass/Vol] 14.7 g/dL Normal 14.0-18.0 [facility] Comment on above: Performed By: #### C BC #### [facility] [address] [place] [address] Dr. Thelma Carlson IG # 0.01 10e3/ul Normal 0.00-0.03 [facility] Comment on above: Performed By: #### C BC #### [facility] [address] [place] [address] Dr. Thelma Carlson IG % 0.2 % Normal 0.0-0.5 [facility] Comment on above: Performed By: #### C BC #### [facility] [address] [place] [address] Dr. Thelma Carlson LYMPH # 1.7 103/ul Normal 1.2-3.8 [facility] Comment on above: Performed By: #### C BC #### [facility] [address] [place] [address] Dr. Thelma Carlson Lymphocytes/100 WBC (Bld) 34.4 % Normal 20.5-60.0 [facility] Comment on above: Performed By: #### C BC #### [facility] [address] [place] [address] Dr. Thelma Carlson MANUAL DIFF REQ NO Normal [facility] Comment on above: Performed By: #### C BC #### [facility] [address] [place] [address] Dr. Thelma Carlson MCH (RBC) [Entitic mass] 29.9 pg Normal 25.9-34.0 [facility] Comment on above: Performed By: #### C BC #### [facility] [address] [place] [address] Dr. Thelma Carlson MCHC (RBC) [Mass/Vol] 34.2 g/dL Normal 29.9-35.2 [facility] Comment on above: Performed By: #### C BC #### [facility] [address] [address] [address] Thelma Carlson MCV (RBC) [Entitic vol] 87.4 fL Normal 80.0-94.0 [facility] Comment on above: Performed By: #### C BC #### [facility] [address] [address] [address] Thelma Carlson MONO # 0.6 103/ul Normal 0.3-0.8 [facility] Comment on above: Performed By: #### C BC #### [facility] [address] [place] [address] Dr. Thelma Carlson Monocytes/100 WBC (Bld) 11.7 % Normal 1.7-12.0 [facility] Comment on above: Performed By: #### C BC #### [facility] [address] [place] [address] Dr. Thelma Carlson NEUT # 2.6 103/ul Normal 1.4-6.5 [facility] Comment on above: Performed By: #### C BC #### [facility] [address] [place] [address] Dr. Thelma Carlson Neutrophils/100 WBC (Bld) 50.7 % Normal 43.0-75.0 [facility] Comment on above: Performed By: #### C BC #### [facility] [address] [place] [address] Dr. Thelma Carlson Platelet mean volume (Bld) [Entitic vol] 9.0 fL Critically low 9.5-13.5 [facility] Comment on above: Performed By: #### C BC #### [facility] [address] [place] [address] Dr. Thelma Carlson PLT 228 103/ul Normal 150-450 [facility] Comment on above: Performed By: #### C BC #### [facility] [address] [address] [address] Thelma Carlson RBC 4.92 106/ul Normal 4.70-6.10 [facility] Comment on above: Performed By: #### C BC #### [facility] [address] [place] [address] Dr. Thelma Carlson WBC 5.1 103/ul Normal 4.0-11.0 [facility] Comment on above: Performed By: #### C BC #### [facility] [address] [place] [address] Dr. Thelma Carlson GLYCOHEMOGLOBIN A1Con 2021 ADA RECOMMENDATION SEE BELOW Normal [facility] Comment on above: Result Comment: ADA RECOMMENDED LIMIT 4.0 - 6.0 ADA THERAPEUTIC TARGET < 7.0 ACTION SUGGESTED > 7.0 Performed By: #### A 1C #### [facility] [address] [place] [address] Dr. Thelma Carlson Glucose [Mass/Vol] 131 mg/dL Normal [facility] Comment on above: Performed By: #### A 1C #### [facility] [address] [place] [address] Dr. Thelma Carlson HbA1c (Bld) [Mass fraction] 6.2 % Normal 4.5-6.2 [facility] Comment on above: Performed By: #### A 1C #### [facility] [address] [place] [address] Dr. Thelma Carlson MICROALBUMIN, RAND URon 04-01 mALB <1.3 Normal <=30.0 [facility] Comment on above: Performed By: #### M ALBR #### [facility] [address] [place] [address] Dr. Thelma Carlson PROF CHEM 8 (BAS METB)on Anion gap [Moles/Vol] 14.4 mmol/L Normal [facility] Comment on above: Performed By: #### T SH, BMP #### [facility] [address] [place] [address] Dr. Thelma Carlson Calcium [Mass/Vol] 9.6 mg/dL Normal 8.5-10.1 [facility] Comment on above: Performed By: #### T SH, BMP #### [facility] [address] [address] [address] Thelma Carlson Chloride [Moles/Vol] 102 mmol/L Normal 98-107 [facility] Comment on above: Performed By: #### T SH, BMP #### [facility] [address] [address] [address] Thelma Carlson CO2 [Moles/Vol] 27.1 mmol/L Normal 21.0-32.[address] [facility] Comment on above: Performed By: #### T SH, BMP #### [facility] [address] [address] [address] Thelma Carlson Creatinine [Mass/Vol] 1.00 mg/dL Normal 0.70-1.30 [facility] Comment on above: Performed By: #### T SH, BMP #### [facility] [address] [address] [address] Thelma Carlson EGFR-AF HAITIAN >60 Normal >=[address] [facility] Comment on above: Performed By: #### T SH, BMP #### [facility] [address] [place] [address] Dr. Thelma Carlson EGFR-NON AF HAITIAN >60 Normal >=60 [facility] Comment on above: Performed By: #### T SH, BMP #### [facility] [address] [place] [address] Dr. Thelma Carlson Glucose [Mass/Vol] 142 mg/dL Critically high 74-106 [facility] Comment on above: Performed By: #### T SH, BMP #### [facility] [address] [address] [address] Thelma Carlson Potassium [Moles/Vol] 4.5 mmol/L Normal 3.5-5.1 [facility] Comment on above: Performed By: #### T SH, BMP #### [facility] [address] [address] [address] Thelma Carlson Sodium [Moles/Vol] 139 mmol/L Normal 136-145 [facility] Comment on above: Performed By: #### T SH, BMP #### [facility] [address] [address] [address] Thelma Carlson Urea nitrogen [Mass/Vol] 25.0 mg/dL Critically high 7.0-18.0 [facility] Comment on above: Performed By: #### T SH, BMP #### [facility] [address] [address] [address] Thelma Carlson Urea nitrogen/Creatinine [Mass ratio] 25.0 mg/mg Normal [facility] Comment on above: Performed By: #### T BRADFORD, BMP #### [facility] [address] [address] [address] Thelma Carlson TSHon 04-21-2022 TSH 2.012 uIU/mL Normal 0.358-3.740 [facility] Comment on above: Performed By: #### T BRADFORD, BMP #### [facility] [address] [address] [address] Thelma Carlson Coding Summaryon 11-13-2021 Coding Summary HTMLBase 64 ViqjmyfwSPv2cPp+PGh lYWQ+JI9KDPUrC19grL FsvZ1HG9mEQN7BWEJOR GCSJA9DQV4hqDT8FTje Q6IhhyCt YnmqzGYpWG13JXw4HKZ 3dOcnDEtrsP6ygRJqQ3 f8JvPoFN84mI42AKxxI TJeAmY2CdIxgcfkmQXw Y5ypWbNvpOJaHkj+PHR hYmxlIHdpZHRoPScxMD YxEySmeDzhNQ1qTe3oY GVyLWNvbGxhcHNlOiBj r2fqQYQwHWrwQF4mqVz yE8LjiOD3VLZpw4k4Se 48dHI+PJPwZEX1oAktD Udxo496EtIpo9vfPNI3 sLSmYLvbSXR3U45bh3W 5QWQeERSdOBR7uCE4aQ 2dfUbxlhauM8DenOQxE nU6QDD1dOIqzY8rdMny blkavV0iPcr+P11QJU2 COZOFEJ0SKln3M5XdEj wvdHI+YI90RVViVK06g WIodEYnb8endQe7GaEl GCXuQVJ9sSokLPnel2O cJNLaW22tpALvp4Q5VJ LdbBexeDOvHgQlbNX4s T3pOVrvtzbvj0mdxgsu Mxntz7fgxe91eZ51U07 cUXjrAZWbXCD6WEZsEQ OxqOgexd4nxC7fYd1+I Huxr9cay7pddEi0LnDa UKIdqjDwzAhjMLI1g6A qSi09O4HksJhgm0QvGd q5kf82tEDus7H4sEA2U GpvREKskP2hWRvoDhP5 XJFeCvUhqA73ySAlJEe zLt4kiGmzyZheAG9jBP LbiafgSDYguD8cAIAah ROepRuyQA3aTJVoguyr h891DdIlDQP0NCVlvJX wE6QtzY9oPkNrJCLlSP IxY7YlyOKuDJlsH802Y RygWdE2ZMHxmrFyP6Mo YIUrzBhiZzU9a0L9Qk1 Xg2GqtdduVER0ATzwKP J6XuD1QsToEwG7H6NwE ja5OFQkeOlqHT9uS9Nu IAQfxsmfjzjhqYV0VEN bNQZygJ65kJUvZVciRa 1zl6G5u723KWCiQCUxm J07Oy7yzTtyKNJtfEAQ sA1iuokpp7syuxoaSdB bDUFuFHq5SEw9FPWiqQ ciXyPzJVR0NeR4SMF6w VJpiD0mqCbyiniwlW0h Oyc+X62msE6sYFO4YNZ 1friwQAHrqjClZH11NR 85X0ZtLybzrIHmyRT+P WNihiDosFvkMV8cDoRj u0yjt6YgYYpvE3NvWRE oWWluLwi2YFDtXDL8iW T7aK6lPMBxMZvbw6F4w OD0E2IjxqMqin4lc8ms TVQsNHeuD11ftMFgp6C 0KPHsgAX9SGQgsYhdNy AykV11Wja+PGNvbGdyb 5GdOkyvt6ovz8rzbVz2 IjMwJSIgdmFsaWduPSJ 6b7XxEs12B55cWJtuBH RoPSIxNSUiIHZhbGlnb o3kqO2bUx9+PGNvbCB3 iON5wI2nRDEqWwI5JKz cY062WkZesPQkWtxgk6 bhs2zfnTn3FrPwUZPzk iQorYvtVCU5g0MhNk76 G25qHYlwSGOuKDWdSKO tBLCicHrwht2gvV4yCu 8+VX5ug0glyh68xR22p HI+ZHFhEUS9nBwoMKgg RSHoaR6vEFdkRsE8EDL yIhXcoP69iVLzOSblFu 5tkCaktThsNA9lSSIry plxz855AxBym7smQQZe uEHpOLtyNSO9H77yb6K 9QLRpSMWzEXO7sAR6eC 1hbGlnbjogbGVmdDsgd tAdqWesQLjaTUwyV080 IHRvcDsnPlBhdGllbnQ kFoAhTNs7X6WbRvk8KV ObmSeuQZ5jiZMsWPkqP r8ctRwtjTwvUU5aXETn mhlwg370YbFdp5cuYJD wcVQdAPviREU3Z83uk8 B7PQJhFEBtXUT4pPX1c O3ujTeichsxyUSzcPtr iqJznPcqMUmjWCfaL24 6IHRvcDsnPkJpcnRoIE PwfWU1ML11UY25dNJpi 3G6tRG5L4VkYZHuhhev ksthuXR0YZRsHMNeoB4 5Pp4mlDcpDg2eWVTnVQ E0STQuzTPoM1GflF2mF mLvMBFvMXYnU6DywODa YVylM594APhxMaS5DTB fpmKzA6NvYILjtBwxNy Z1f9H7Rv6GO4S4GI69R S44pMXgv6S4fSZ3N4St AASzljiyxtbfoKT9ZOM rSEBfyK13Fm4odTyfSg 8qFYFmDDD0ROEtoWQsT 6CagW7wZbNjIUIsFXHn P2ZykKAmBYprS898KOo xIbX3BJBxlgJeF6GjXF QacMpwFnG7k1B4Nb8DJ Ng1DO81LD45kCYij4M1 xIM7O4PdBXGzkesnorq qmOH7WQJyGNJuhL92Mn 9wuCudWc7wXYXuTLT0I DYukMAkK5EqzA4vDlBj EWInMOEcV4AkkPKuAOt gF750IPvuYyW8LKSzwr NxR3UiPAHmsMawGzB9k 5M3Zm7AKJHuJT26CUW0 sLU5ZH29FD45X9KeYzw vdGFibGU+PHRhYmxlIH dpZHRoPScxMDAlJyBzd WobPH1iPg6bKKBaQHWz hGhouCFqAtMxq7fiBZN iCYkpDG5yeFbxF3SaiR M1WMWbp6c1Hl46I96tG 3JvdXA+NLRzmWQ7cBQ3 jC4jDwSoFiZ4LBcbB43 8MoQvxKDxUdqsu5fjq6 ydbJi9XkD9UFNddnIjk UchUVS7o8YlWa05R74c IHdpZHRoPSIxNSUiIHZ zzBjivv9qbN7gHv5+PG RupLX9pKJ3cA6jFfSsM jP2SZfnU576DkJedANh Mobcy2lel0ymzFk8UaJ vAIPacyYchYeeYUB8n0 QyKe35Q5CztNlsa1DvX ih8ti65nRWei5R3eIH2 H8XiCCQkkugqcPLqsQr lBO4nBRCscvquNJFgnG 3kCMKkL0l1LrOiWlF2V AspN1XdihB5HHQnoTQb YUlfCEW5J88do4U7YZH eXQLyUYW1qYG9bY6leC lnbjogbGVmdDsgdmVyd WffDAgnWAguT790UPDs jRxeHMMobZ1nHHRbcZS agMinDP6vIPZhmviiTu 1ZYViRGcfeHi0ODDYjH TwvdGQ+FUOnJME5gKcg WEynQPLxjT1cJIGgU3u 8YmVdVqN0GQysI9ViYI IbiaadCo46iA0wUjWwH eS5ICepB8NxkrK9GLKc tPEzWHcfYLC0D25tp6N 5ZZTlYFOsBNS2vPS1rU 1hbGlnbjogbGVmdDsgd fKoyNltDEesORrmB618 PRLlhVgcPcL7WyDwHxC 2QIY1G1TrSnw2EHQyxD diSH6ubAUkWPuhLd9we UtbeNodED7aOYZbywhq IRNxzO9dVOZseXGmfKo kNM0gXKKqpfmec533Ck RwHVX6EPIudDUaI4Zee S6cLkIfIZBkJRAcW9Rz aARaPOimT048PMrtAqH 8IKJezcVkG3WwHGUwnP bfBfC4f5B6Le80QsTKE WFyczwvdGQ+PHRkIHN0 vVofEBmbEASfyQ6zTPI kV3y1GeEyWeP5VVzwU3 DeRFOuqhuzVw79bO5dG qKaHlI4WFrvY6EhveL1 TKTovEYdDTpiGOL2B69 vt5W9CFCfHDApOAR9iA M2yS7ztWsadbydvQLjs DsgdmVydGljYWwtYWxp L085ZWOzlJywOh8PZHF 5T4HiBbs7UEZhaBltQN 3hjOWcODrwIz7edVnmw MgrGK5tMBZydqlzXCJy cC0tOIPfsQYlhWxmDL8 yLQOylcquf276FfNcNU E8TXEmgZGbP2VkbF1hL vRgMNQpVWBzQ1VvuFVw KFgsZ459AGeaBaF6AXT wthPrS4UhEGXrkCrhMg N5f6T0Ob5JZTdisMW+P W30mq76Z2ZjSmvzMkn8 GTBbTKR1iAB2qZ4kQKZ pVYuug0R5rBS4Y0Qrpg Qjuy7dj8esDQXrJSzpW 25dbDPhe7X4UBDhuOX3 LOHckDplRhCqiO03Ici +YMDgaRnay2FxVaouy7 wjw4bjfPj2BmRnBOBmf vVxnCqhIVR5u8LxWn82 H72jWVicEWDxTKLjKQK aARNzzLycdd8fyX5zUl 8+BXRlsNR3fTK5hI3aR gUtKkV9RWzlF672AoYj kYPgDstng8ije3yzsGs 9IjIwJSIgdmFsaWduPS Q3g8VgSt32O9NztNaof 3YoZrn8dx30tIMyc6N2 pRA7I1BzWFEhhrzxtGZ yaNneTB4yPPDegtiaDK KizF5xJCHaF4p0HyWeZ aA4TIdiW5ZbkiL0LYGi fVXtQFXlmGKTxR7poff wy4zvqeiwInIoACEpPG y1XNy8BFRudHxlZiRoT YW3HnN4IXY7yRZetY4t cVcpvdrbhP0jOyl+UGh 8f0raaJAeBW6epQG4WV 82YN19qXYhl7R2gDK1S 6TpYZFistquolwsoQG5 DOQhQZSayL19Xi6czEk wHh2rSYHvAOM2PAAliR XcR4XsuA2gBjTjJUGfO AEoM4TdqNXeVCpnC698 VJuuLoR6SANstnCwB9I dXKMylKstBoJ9e9I3Jo 8MGK37IL64HJ64hCHnq 7K8dUK0N1AdKPCwqyjc lqkhqTW8ZFPcONLalF4 1Je6qfItkSe3tRREoQR A1DXEdxCLmW6SlnX3zW xWiKVSoFYXxV6EnsXAc EKrhQ440WNzrCqP2HBC rqaRgI4NuMDNnrDcdIb V7a7E2Wz5VUj93TV74P T38oYQbk9K3oYK0V8Mz ICLqqmcznagusZG0QDE pQLYcsA45Bq9zmRgaKe 5bYHJfWYO9GSAaqXHaE 7XquI0tBhTpKHRyRYIq M6WrvIKyERsyO630AMd pLgW3YJPhwaNeE3KrAZ BrlWjiZtH7w1H7Tp1IP Nnkktx4X6VjDnwtxDT+ RS55CLSrSY78nVLnvKF uq3viqUb7ZwVeCGIuKP X7vYvvQTgsd1JyPZRtJ 80beLTql9N5BTVswYhi cHN (more content not included)... Normal [facility] Provider Orderson 11-13-2021 Provider Orders [id number] Normal [facility] US LE Venous Duplex [place] 11-10-2021 [...] Osvaldo Valdez 11/10/21 5:45 pm Technologist: RITA [facility] Vital Signs Date Time Vital Sign Value Performing Clinician Facility 02-26-2023 08:30-0400 Body height 170.18 cm Chace Ball Other [facility] Other 02-26-2023 08:30-0400 Body mass index (BMI) [Ratio] 35.96 kg/m2 Chace Ball Other [facility] Other 02-26-2023 08:30-0400 Body weight 104.15 kg Chace Ball Other [facility] Other 02-26-2023 08:30-0400 Diastolic blood pressure 90 mm[Hg] Chace Ball Other [facility] Other 02-26-2023 08:30-0400 Respiratory rate 12 /min Chace Ball Other [facility] Other 02-26-2023 08:30-0400 Systolic blood pressure 157 mm[Hg] Chace Ball Other [facility] Other 08-25-2022 16:00-0400 Body height 170.18 cm Chace Ball Other [facility] Other 08-25-2022 16:00-0400 Body mass index (BMI) [Ratio] 38.02 kg/m2 Chace Ball Other [facility] Other 08-25-2022 16:00-0400 Body weight 110.13 kg Chace Ball Other [facility] Other 08-25-2022 16:00-0400 Diastolic blood pressure 84 mm[Hg] Chace Ball Other [facility] Other 08-25-2022 16:00-0400 Respiratory rate 12 /min Chace Ball Other [facility] Other 08-25-2022 16:00-0400 Systolic blood pressure 148 mm[Hg] Chace Ball Other [facility] Other 08-19-2022 09:30-0400 Body height 170.18 cm Chace Ball Other [facility] Other 08-19-2022 09:30-0400 Body mass index (BMI) [Ratio] 38.09 kg/m2 Chace Ball Other [facility] Other 08-19-2022 09:30-0400 Body weight 110.32 kg Chace Ball Other [facility] Other 08-19-2022 09:30-0400 Diastolic blood pressure 86 mm[Hg] Chace Ball Other [facility] Other 08-19-2022 09:30-0400 Respiratory rate 12 /min Chace Ball Other [facility] Other 08-19-2022 09:30-0400 Systolic blood pressure 146 mm[Hg] Chace Ball Other [facility] Other Encounters Encounter Date Encounter Type Care Provider Facility Start: 10-21-2023 End: 10-21-2023 ambulatory [facility] Work Phone: Start: 10-21-2023 End: 10-21-2023 Patient encounter procedure [facility] Work Phone: Start: 06-16-2023 End: 06-16-2023 ambulatory Chace Montejo Other [facility] Other Start: 06-16-2023 Telephone encounter Chace Montejo [facility] Start: 02-26-2023 End: 02-26-2023 ambulatory Chace Montejo Other [facility] Other Start: 02-26-2023 Office outpatient vi sit 25 minutes Chace Montejo [facility] Start: 02-08-2023 End: 02-08-2023 ambulatory Magi Greenwood Other [facility] Other Start: 02-08-2023 Nursing evaluation o f patient and report Magi Greenwood [facility] Start: 12-25-2022 End: 12-25-2022 ambulatory Chace Montejo Other [facility] Other Start: 12-25-2022 Telephone encounter Chace GALO [facility] Start: 08-25-2022 End: 08-25-2022 ambulatory Chace Montejo Other [facility] Other Start: 08-25-2022 Office outpatient vi sit 15 minutes Chace Montejo [facility] Start: 08-19-2022 Office outpatient vi sit 25 minutes Chace Montejo [facility] Start: 08-19-2022 End: 08-20-[address] CHACE MONTEJO Facility: Start: 04-21-2022 Adult health examination Chace Montejo Other [facility] Other Start: 04-21-2022 End: 04-22-[address] CHACE MONTEJO Facility:H1 Procedures Date Procedure Procedure Detail Performing Clinician Start: 04-21-[address] ALBERTO IN [place] Comment on above: Performed By: #### [facility] #### [facility] [address] [place] [address] Dr. Thelma Carlson Start: 09-20-2018 End: 10-02-2019 General examination of patient Chace Montejo Other Start: 09-20-2018 End: 10-02-2019 Screening for malignant neoplasm of prostate Chace Montejo Other Depression screening Bennie Montejo Other Screening for malign ant neoplasm of colon Chace Montejo Other Screening for malign ant neoplasm of prostate Chace Montejo Other Immunizations Immunization Date Immunization Notes Care Provider Fa cility 02-26-2023 influenza virus vaccine, unspecified formulation [facility] 02-26-2023 influenza, high dose seasonal, preservative-free Chace Montejo Other [facility] Other 04-21-2022 influenza virus vaccine, split virus (incl. purified surface antigen) Chace Montejo Other [facility] Other 04-21-2022 influenza virus vaccine, unspecified formulation [facility] 04-21-2022 Prevnar 20 Chace Montejo Other [facility] 11-14-2021 tetanus and diphther ia toxoids, adsorbed, preservative free, for adult use (5 Lf of tetanus toxoid and 2 Lf of diphtheria toxoid) Chace Montejo Other [facility] 08-31-2021 COVID-19 Vaccine Moderna - Documentation Purposes Only Chace Montejo Other [facility] 03-24-2021 COVID-19 Vaccine Moderna - Documentation Purposes Only Chace Montejo Other [facility] pneumococcal Conjuga te, unspecified formulation; Translations: [Need for prophylactic vaccination against Streptococcus pneumoniae (pneumococcus)] Chace Montejo Other [facility] Other Payers Date Payer Category Payer Medicare [id number] 1960 Unknown [id number] 1955 Unknown [id number] 1955 Unknown [id number] Unknown [place] BC/BS [id number] Social History Date Type Detail Facility Sex Assigned At [facility] Other Start: 1955 Sex Assigned At Male [facility] Evaluation note 02-26-2023 Note Date & Type [...] use, the patient reduces the risk for RI, CVA, HTN, cardiac dysrhythmias and sudden cardiac [...] kneeling. IA injection, PT for severe discomfort [facility] Other Evaluation note 02-08-2023 Note Date & Type Note Facility 02-08-2023 Evaluation note Encounter Date Diagnosis Assessment Notes Jan, Seasonal allergic rhinitis due to pollen (ICD-10 - J30.1) [facility] Other Evaluation note 08-25-2022 Note Date & [...] Jul, Seborrheic keratoses, inflamed (ICD-10 - L82.0) [facility] Other Evaluation note 08-19-2022 Note Date & [...] use, the patient reduces the risk for RI, CVA, HTN, cardiac dysrhythmias and sudden cardiac [...] (ICD-10 - N40.1) Symptoms tolerable. Yearly PSA [facility] Other Clinical Note 08-19-2022 Note Date & [...] authenticated by: CED MANE Date: 2022-08-19 10:37 [facility] Evaluation note Note Date & Type Note Facility Evaluation note No Information [facility] [employer] Other Evaluation note Note Date & Type Note Facility Evaluation note No assessment information availa [facility] Work Phone: History general Narrative - Reported Note Date [...] TIBIA/FIBULA FX Surgical History COLONOSCOPY Surgical History [facility] Hospitalization History SEE SURGICAL HX [facility] XING Other Summary Purpose Family History Relationship Condition Age at Onset Recorded Date/T hans Not Specified Malignant neoplasm Unknown Malignant neoplasm of breast Unknown Advance Directives Advance Directive Response Recorded Date/ Time Advance Directives No October 20 11:56am Chief Complaint and Reason for Visit Chief Complaint allergy shot Additional Source Comments (unrecognized sect ion and content) No Status Records FoundNo Status Records Found INFORMATION SOURCE (unrecogn ized section and content) DATE CREATED AUTHOR 11/14/2021 [facility] l DATE CREATED AUTHOR AUTHOR'S ORGANIZ ATION 08/23/2022 [facility] REASON FOR VISIT (unrecogniz ed section and content) 4 MONTH FOLLOW UP1 wk follow upConcernsAllergy Shot6 month Follow up6 month Follow upLab results Care Teams (unrecognized sec tion and content) Team Status: Active Member Role Status Dates Chace Montejo DO Primary Care Provider Active Team Status: Inactive Member Role Status Dates Chace Montejo DO Primary Care Provide r, Attending Provider Active Start: October 21, 2023 End: October 21, 2023 Goals (unrecognized section and content) Goals may be documented in a n alternate section FOR RECORDS PERTAINING TO PATIENTS WHO ARE [...] BE BASED ON THE PRIMARY CLINICAL RECORDS. [facility] [employer] [facility]. provides no warranty or guarantee of the accuracy or completeness of information in this document.
[2024-02-14 11:49] LABS: Basophils Percent Auto 0.5 % (0.2-2.0); Eosinophils Absolute Auto 0.1 10^3/uL (0.0-0.7); Eosinophils Percent Auto 0.9 % (0.9-7.0); Hematocrit 43.3 % (42.0-54.0); Hemoglobin 14.2 g/dL (14.0-18.0); Immature Granulocytes Abs Auto 0.03 10^3/uL (0.00-0.03); Immature Granulocytes Pct Auto 0.5 % (0.0-0.5); Lymphocytes Absolute Auto 1.3 10^3/uL (1.2-3.8); Lymphocytes Percent Auto 20.5 % (20.5-60.0); Mean Corpuscular HGB Conc 32.8 g/dL (29.9-35.2); Mean Corpuscular Hemoglobin 29.7 pg (25.9-34.0); Mean Corpuscular Volume 90.6 fL (80.0-94.0); Mean Platelet Volume 9.9 fL (9.5-13.5); Monocytes Absolute Auto 0.5 10^3/uL (0.3-0.8); Monocytes Percent Auto 8.4 % (1.7-12.0); Neutrophils Absolute Auto 4.5 10^3/uL (1.4-6.5); Neutrophils Percent Auto 69.2 % (43.0-75.0); Platelet Count 184 10^3/uL (150-450); Red Blood Count 4.78 10^6/uL (4.70-6.10); Red Cell Distribution Width 13.1 % (11.0-15.0); White Blood Count 6.4 10^3/uL (4.0-11.0)
[2024-02-14 12:27] LABS: Alanine Aminotransferase 34 U/L (16-63); Albumin Level 3.7 g/dL (3.4-5.0); Alkaline Phosphatase 68 U/L (46-116); Anion Gap 11.7; Aspartate Amino Transferase 19 U/L (15-37); BUN Creatinine Ratio 12.8; Bilirubin Total 0.6 mg/dL (0.2-1.0); Calcium 9.4 mg/dL (8.5-10.1); Carbon Dioxide 28.6 mmol/L (21.0-32.0); Chloride 104 mmol/L (98-107); Estimated GFR (African America >60 (>=60); Estimated GFR (Non-African Ame >60 (>=60); Globulin 3.8 g/dL; Glucose 136 mg/dL (74-106); Potassium 4.3 mmol/L (3.5-5.1); Sodium 140 mmol/L (136-145); Total Protein 7.5 g/dL (6.4-8.2)
== END 2024-02-14 11:20 | disposition home or self-care (01) ==
LOC: LAB 11:22
PROVIDERS: PCP Internal Medicine; Visit Provider Internal Medicine
DX: M79.89 Other specified soft tissue disorders (principal); E11.65 Type 2 diabetes mellitus with hyperglycemia; I10 Essential (primary) hypertension; G47.33 Obstructive sleep apnea (adult) (pediatric)
CPT/HCPCS: 36415; 80053; 85025; 93971

== ENCOUNTER 2024-08-14 10:20 | Outpatient (OUT) | payer MEDICARE, OTHER, SELFPAY ==
--- OUTSIDE RECORDS SUMMARY | 2024-08-14 10:36 | XMS_ITS | CCD ---
Author Organization [facility] Care Team Providers Care Visitor Use Assistant Name Role Phone GABINO, DR JOE Admitting Unavailable GABINO, DR JOE Attending Unavailable GABINO, DR JOE Primary Care Unavailable GABINO, DR JOE Consulting Unavailable GABINO, DR JOE Admitting Unavailable GABINO, DR JOE Attending Unavailable GABINO, DR JOE Primary Care Unavailable GABINO, DR JOE Consulting Unavailable ANTONIETTA, DR CED Andino Consulting Unavailable Gabino, Chace Unavailable Magi Greenwood Unavailable Allergies Allergy Classification Reported Allergen(s) Allergy Type Date of Onset Reaction(s) Facility [facility] (1 source) am[facility]ine Drug Allergy 06-15-19 [facility] Penicillins (antibiotic) (1 source) Penicillins Drug Allergy 06-15-19 [facility] (4 sources) Penicillins Drug allergy (disorder) 04-04-20 13 Unknown Reaction [facility] (10 sources) amLODIPine Drug Allergy 02-14-20 24 Unknown, Unknown Reaction [facility] (7 sources) Substance with penicillin structure and antibacterial mechanism of action (substance) Drug allergy Unknown [facility] Other (2 sources) patient allergy list reviewed by nurse or physicia Propensity to adverse reactions 06-09-19 14 Comment:Done [facility] Other Medications Current Medications Medication Drug Class(es) Dates Sig (Normalized) Sig (Original) amLODIPine 5 mg oral tablet (10 sources) Dihydropyridine Calcium Channel Alec Start: 02-14-2024 take 1 tablet by mouth once daily Amlodipine 5 mg tablet Active 5 MG PO Daily February 14, 2024 12:00am amLODIPine Besyl ate 5 MG TAKE 1 TABLET BY MOUTH EVERY DAY Orally Once a day for 90 days Active doxycycline hyclate 100 mg oral capsule (8 sources) Tetracycline-class Drug Start: 02-26-2023 take 1 capsule by mouth twice daily Doxycycline Hyclate 100 MG 1 capsule Orally twice daily for 10 days Jan, Active etodolac 500 mg oral tablet (13 sources) Nonsteroidal Anti-inflammatory Drug Start: 02-14-2024 End: 05-14-2024 take 1 tablet by mouth twice daily Etodolac 500 mg tablet Active 0 .ROUTE .COMPLEX 180 May 14, 2024 10:10am TAKE 1 TABLET BY MOUTH TWICE A DAY Start: 02-14-2024 End: 02-14-2024 take 1 tablet by mouth twice daily Etodolac 500 mg tablet Discontinued 500 MG PO Twice daily February 14, 2024 12:00am February 14, 2024 1:27pm take 1 tablet by norman th twice daily Etodolac 500 MG TAKE 1 TABLET BY MOUTH TWICE A DAY for 90 Active finasteride 5 mg oral tablet (10 sources) 5-alpha Reductase Inhibitor Start: 02-14-2024 take 1 tablet by mouth once daily Finasteride 5 mg tablet Active 5 MG PO Daily February 14, 2024 12:00am take 1 tablet by norman th every twenty-four hours Finasteride 5 MG 1 tablet Orally Once a day Active Semaglutide (3 sources) Start: 02-14-2024 Semaglutide (Ozempic) 0.25 mg or 0.5 mg (2 mg/3 mL) pen injector Active 0.25 MG SUBCUT every week 3 February 14, 2024 12:00am for 4 weeks sildenafil 100 mg oral tablet (10 sources) Phosphodiesterase 5 Inhibitor Start: 02-14-2024 take 1 tablet by mouth once daily Sildenafil 100 mg tablet Active 100 MG PO Daily February 14, 2024 12:00am take 1 tablet by norman th every twenty-four hours Sildenafil Citrate 100 MG 1 tablet as needed Orally Once a day Not-Taking/PRN Completed/Discontinued Medications Medication Drug Class(es) Dates Sig (Normalized) Sig (Original) OneTouch Ultra - (2 sources) OneTouch Ultra - USE TO TEST BLOOD SUGAR ONCE DAILY for 90 Not-Taking/PRN OneTouch Ultra - USE TO TEST BLOOD SUGAR ONCE DAILY for 90 Active triamcinolone acetonide 40 mg/ml injectable suspension (4 sources) Corticosteroid Start: 02-08-2023 Kenalog-40 Jan, 60 mg Problems Active Problems Problem Classification Problem Date Documented Da te Episodic/Chronic Acute bronchitis (1 source) Acute bronchitis due to other specified organisms Episodic Coronary atherosclerosis and other heart disease (13 sources) Coronary artery spasm; Translations: [Angina pectoris with documented spasm] Onset: 09-20-2018 Resolved: 10-02-2019 Chronic Diabetes mellitus with complications (20 sources) Type 2 diabetes mellitus with hyperglycemia; Translations: [Type 2 diabetes mellitus] Onset: 04-21-2022 Chronic Disorders of lipid metabolism (14 sources) Pure hypercholesterolemia ; Translations: [Familial hypercholesterolemia ] Resolved: 10-02-2019 08-14-2024 Chronic Esophageal disorders (3 sources) Gastro-esophageal reflux disease with esophagitis; Translations: [Gastroesophageal reflux disease with esophagitis without hemorrhage] Chronic Esophageal disorders (6 sources) Esophageal disorders; Translations: [Gastroesophageal reflux disease with esophagitis without hemorrhage] Essential hypertension (20 sources) Essential (primary) hypertension; Translations: [Essential hypertension] [...] [Fatigue] Onset: 09-20-2018 Resolved: 10-02-2019 Episodic Osteoarthritis (19 sources) Unilateral primary osteoarthritis, right knee; Translations: [Osteoarthritis of right knee joint] Onset: 08-19-2022 Chronic Other and unspecified benign neoplasm (2 sources) Benign neoplasm of colon; Translations: [Benign neoplasm of colon] Episodic Other connective tissue disease (9 sources) Disorder of soft tissue; Translations: [Other specified soft tissue disorders] Episodic Other connective tissue disease (3 sources) Swelling of right lower limb; Translations: [Other specified soft tissue disorders] 02-14-2024 Episodic Other connective tissue disease (3 sources) Other specified soft tissue disorders; Translations: [Swelling of limb] 02-14-2024 Episodic Other diseases of veins and lymphatics [...] Chronic Other nutritional; endocrine; and metabolic disorders (4 sources) Obesity; Translations: [Obesity, unspecified] 02-14-2024 Chronic Other nutritional; endocrine; and metabolic disorders (2 sources) Morbid obesity; Translations: [Morbid (severe) obesity due to excess calories] Chronic Other nutritional; endocrine; and metabolic disorders (2 sources) Obesity, unspecified; Translations: [Obesity, unspecified] 02-14-2024 Chronic Other screening for suspected conditions (not mental disorders or infectious disease) (3 sources) Encounter for screening for malignant neoplasm of prostate; Translations: [Patient encounter status] Onset: 04-27-2022 08-14-2024 Episodic Other skin disorders (9 sources) Male pattern [...] seborrheic keratosis Episodic Other upper respiratory disease (14 sources) Allergic rhinitis due to pollen; Translations: [Allergic rhinitis due to pollen] 03-06-2024 Chronic Other upper respiratory disease (1 source) Allergic rhinitis due to pollen Chronic Residual codes; unclassified (12 sources) Obstructive sleep apnea syndrome; Translations: [Obstructive sleep apnea (adult) (pediatric)] 02-14-2024 Chronic Residual codes; unclassified (6 sources) Obstructive sleep apnea (adult) (pediatric); Translations: [Obstructive sleep apnea (adult)(pediatric)] Chronic Residual codes; unclassified (2 sources) Immunization [...] gain] Onset: 04-11-2014 Resolved: 10-02-2019 Episodic Other upper respiratory disease (2 sources) [...] Name Value Interpretation Reference Range Facil ity Basophils Auto (Bld) [#/Vol] on 02-14-2024 Basophils (Bld) [#/Vol] 0.0 10 3/uL 0.0-0.1 [facility] Basophils/100 WBC Auto (Bld) on 02-14-2024 Basophils/100 WBC (Bld) 0.5 % 0.2-2.0 [facility] Eosinophils/100 WBC Auto (Bl d)on 02-14-2024 Eosinophils/100 WBC (Bld) 0.9 % 0.9-7.0 [facility] Erythrocyte distribution wid th Auto (RBC) [Ratio]on 02-14-2024 Erythrocyte distribution width (RBC) [Ratio] 13.1 % 11.0-15.0 [facility] Estimated glomerular filtrat ion rate (GFR) non- Americanon 02-14-2024 GFR/1.73 sq M.predicted among non-blacks MDRD (S/P/Bld) [Vol rate/Area] mL/min/{1.73_m2} >=60 [facility] Globulin Calc (S) [Mass/Vol] on 02-14-2024 Globulin (S) [Mass/Vol] 3.8 g/dL [facility] Hematocrit Auto (Bld) [Volum e fraction]on 02-14-2024 Hematocrit (Bld) [Volume fraction] 43.3 % 42.0-54.0 [facility] Hemoglobin [Mass/volume] in Bloodon 02-14-2024 Hemoglobin (Bld) [Mass/Vol] 14.2 g/dL 14.0-18.0 [facility] Laboratory - Chemistry and C hemistry - challengeon 02-14-2024 Albumin [Mass/Vol] 3.7 g/dL 3.4-5.0 [facility] ALP [Catalytic activity/Vol] 68 U/L 46-116 [facility] ALT [Catalytic activity/Vol] 34 U/L 16-63 [facility] AST [Catalytic activity/Vol] 19 U/L 15-37 [facility] Bilirubin [Mass/Vol] 0.6 mg/dL 0.2-1.0 [facility] Calcium [Mass/Vol] 9.4 mg/dL 8.5-10.1 [facility] Chloride [Moles/Vol] 104 mmol/L 98-107 [facility] CO2 [Moles/Vol] 28.6 mmol/L 21.0-32.0 [facility] Creatinine [Mass/Vol] 1.09 mg/dL 0.70-1.30 [facility] GFR/1.73 sq M.predicted MDRD (S/P/Bld) [Vol rate/Area] mL/min/{1.73_m2} >=60 [facility] Glucose [Mass/Vol] 136 mg/dL High 74-106 [facility] Potassium [Moles/Vol] 4.3 mmol/L 3.5-5.1 [facility] Protein [Mass/Vol] 7.5 g/dL 6.4-8.2 [facility] Sodium [Moles/Vol] 140 mmol/L 136-145 [facility] Urea nitrogen [Mass/Vol] 14.0 mg/dL 7.0-18.0 [facility] Urea nitrogen/Creatinine [Mass ratio] 12.8 mg/mg [facility] Laboratory - Hematology and Cell countson 02-14-2024 Immature granulocytes/100 WBC (Bld) 0.5 % 0.0-0.5 [facility] Leukocytes [#/volume] correc josh for nucleated erythrocytes in Blood by Automated counon 02-14-2024 WBC corrected for nucl RBC Auto (Bld) [#/Vol] 6.4 10 3/uL 4.0-11.0 [facility] Lymphocytes Auto (Bld) [#/Vo l]on 02-14-2024 Lymphocytes (Bld) [#/Vol] 1.3 10 3/uL 1.2-3.8 [facility] Lymphocytes/100 WBC Auto (Bl d)on 02-14-2024 Lymphocytes/100 WBC (Bld) 20.5 % 20.5-60.0 [facility] MCH Auto (RBC) [Entitic mass ]on 02-14-2024 MCH (RBC) [Entitic mass] 29.7 pg 25.9-34.0 [facility] MCHC Auto (RBC) [Mass/Vol]on 02-14-2024 MCHC (RBC) [Mass/Vol] 32.8 g/dL 29.9-35.2 [facility] MCV Auto (RBC) [Entitic vol] on 02-14-2024 MCV (RBC) [Entitic vol] 90.6 fL 80.0-94.0 [facility] Monocytes Auto (Bld) [#/Vol] on 02-14-2024 Monocytes (Bld) [#/Vol] 0.5 10 3/uL 0.3-0.8 [facility] Monocytes/100 WBC Auto (Bld) on 02-14-2024 Monocytes/100 WBC (Bld) 8.4 % 1.7-12.0 [facility] Neutrophils Auto (Bld) [#/Vo l]on 02-14-2024 Neutrophils (Bld) [#/Vol] 4.5 10 3/uL 1.4-6.5 [facility] Neutrophils/100 WBC Auto (Bl d)on 02-14-2024 Neutrophils/100 WBC (Bld) 69.2 % 43.0-75.0 [facility] No Panel Informationon 02-13 Eosinophils # (Auto) 0.1 10 3/uL 0.0-0.7 [facility] Immature Granulocyte # (Auto) 0.03 10 3/uL 0.00-0.03 [facility] Platelet mean volume Auto (B ld) [Entitic vol]on 02-14-2024 Platelet mean volume (Bld) [Entitic vol] 9.9 fL 9.5-13.5 [facility] Platelets Auto (Bld) [#/Vol] on 02-14-2024 Platelets (Bld) [#/Vol] 184 10 3/uL 150-450 [facility] RBC Auto (Bld) [#/Vol]on RBC (Bld) [#/Vol] 4.78 10 6/uL 4.70-6.10 [facility] Serum or plasma albumin/glob ulin mass ratioon 02-14-2024 Albumin/Globulin [Mass ratio] 1.0 {ratio} [facility] Serum or plasma anion gap de terminationon 02-14-2024 Anion gap [Moles/Vol] 11.7 mmol/L [facility] CBC AUTO DIFFon 04-21-2022 BASO # 0.0 103/ul Normal 0.0-0.1 [facility] Comment on above: Performed By: #### C BC #### [facility] [address] [place] [address] Dr. Thelma Carlson Basophils/100 WBC (Bld) 0.4 % Normal 0.2-2.0 [facility] Comment on above: Performed By: #### C BC #### [facility] [address] [place] [address] Dr. Thelma Carlson EO # 0.1 103/ul Normal 0.0-0.7 [facility] Comment on above: Performed By: #### C BC #### [facility] [address] [address] [address] Thelma Carlson Eosinophils/100 WBC (Bld) 2.6 % Normal 0.9-7.0 [facility] Comment on above: Performed By: #### C BC #### [facility] [address] [place] [address] Dr. Thelma Carlson Erythrocyte distribution width (RBC) [Ratio] 12.6 % Normal 11.0-15.0 [facility] Comment on above: Performed By: #### C BC #### [facility] [address] [place] [address] Dr. Thelma Carlson Hematocrit (Bld) [Volume fraction] 43.0 % Normal 42.0-54.0 [facility] Comment on above: Performed By: #### C BC #### [facility] [address] [place] [address] Dr. Thelma Carlson Hemoglobin (Bld) [Mass/Vol] 14.7 g/dL Normal 14.0-18.0 [facility] Comment on above: Performed By: #### C BC #### [facility] [address] [place] [address] Dr. Thelma Carlson IG # 0.01 10e3/ul Normal 0.00-0.03 [facility] Comment on above: Performed By: #### C BC #### [facility] [address] [place] [address] Dr. Thelma Carlson IG % 0.2 % Normal 0.0-0.5 [facility] Comment on above: Performed By: #### C BC #### [facility] [address] [place] [address] Dr. Thelma Carlson LYMPH # 1.7 103/ul Normal 1.2-3.8 [facility] Comment on above: Performed By: #### C BC #### [facility] [address] [place] [address] Dr. Thelma Carlson Lymphocytes/100 WBC (Bld) 34.4 % Normal 20.5-60.0 [facility] Comment on above: Performed By: #### C BC #### [facility] [address] [place] [address] Dr. Thelma Carlson MANUAL DIFF REQ NO Normal [facility] Comment on above: Performed By: #### C BC #### [facility] [address] [place] [address] Dr. Thelma Carlson MCH (RBC) [Entitic mass] 29.9 pg Normal 25.9-34.0 [facility] Comment on above: Performed By: #### C BC #### [facility] [address] [place] [address] Dr. Thelma Carlson MCHC (RBC) [Mass/Vol] 34.2 g/dL Normal 29.9-35.2 [facility] Comment on above: Performed By: #### C BC #### [facility] [address] [address] [address] Thelma Carlson MCV (RBC) [Entitic vol] 87.4 fL Normal 80.0-94.0 [facility] Comment on above: Performed By: #### C BC #### [facility] [address] [address] [address] Thelma Carlson MONO # 0.6 103/ul Normal 0.3-0.8 [facility] Comment on above: Performed By: #### C BC #### [facility] [address] [place] [address] Dr. Thelma Carlson Monocytes/100 WBC (Bld) 11.7 % Normal 1.7-12.0 [facility] Comment on above: Performed By: #### C BC #### [facility] [address] [place] [address] Dr. Thelma Carlson NEUT # 2.6 103/ul Normal 1.4-6.5 [facility] Comment on above: Performed By: #### C BC #### [facility] [address] [place] [address] Dr. Thelma Carlson Neutrophils/100 WBC (Bld) 50.7 % Normal 43.0-75.0 [facility] Comment on above: Performed By: #### C BC #### [facility] [address] [place] [address] Dr. Thelma Carlson Platelet mean volume (Bld) [Entitic vol] 9.0 fL Critically low 9.5-13.5 [facility] Comment on above: Performed By: #### C BC #### [facility] [address] [place] [address] Dr. Thelma Carlson PLT 228 103/ul Normal 150-450 [facility] Comment on above: Performed By: #### C BC #### [facility] [address] [place] [address] Dr. Thelma Carlson RBC 4.92 106/ul Normal 4.70-6.10 [facility] Comment on above: Performed By: #### C BC #### [facility] [address] [address] [address] Thelma Carlson WBC 5.1 103/ul Normal 4.0-11.0 [facility] Comment on above: Performed By: #### C BC #### [facility] [address] [place] [address] Dr. Thelma Carlson GLYCOHEMOGLOBIN A1Con 2021 ADA RECOMMENDATION SEE BELOW Normal [facility] Comment on above: Result Comment: ADA RECOMMENDED LIMIT 4.0 - 6.0 ADA THERAPEUTIC TARGET < 7.0 ACTION SUGGESTED > 7.0 Performed By: #### A 1C #### [facility] [address] [place] [address] Dr. Thelma Carlson Glucose [Mass/Vol] 131 mg/dL Normal [facility] Comment on above: Performed By: #### A 1C #### [facility] [address] [place] [address] Dr. Thelma Carlson HbA1c (Bld) [Mass fraction] 6.2 % Normal 4.5-6.2 [facility] Comment on above: Performed By: #### A 1C #### [facility] [address] [place] [address] Dr. Thelma Carlson MICROALBUMIN, RAND URon 04-01 mALB <1.3 Normal <=30.0 [facility] Comment on above: Performed By: #### M ALBR #### [facility] [address] [place] [address] Dr. Thelma Carlson PROF CHEM 8 (BAS METB)on Anion gap [Moles/Vol] 14.4 mmol/L Normal [facility] Comment on above: Performed By: #### T SH, BMP #### [facility] [address] [place] [address] Dr. Thelma Carlson Calcium [Mass/Vol] 9.6 mg/dL Normal 8.5-10.1 [facility] Comment on above: Performed By: #### T SH, BMP #### [facility] [address] [place] [address] Dr. Thelma Carlson Chloride [Moles/Vol] 102 mmol/L Normal 98-107 [facility] Comment on above: Performed By: #### T SH, BMP #### [facility] [address] [address] [address] Thelma Carlson CO2 [Moles/Vol] 27.1 mmol/L Normal 21.0-32.0 [facility] Comment on above: Performed By: #### T SH, BMP #### [facility] [address] [address] [address] Thelma Carlson Creatinine [Mass/Vol] 1.00 mg/dL Normal 0.70-1.30 [facility] Comment on above: Performed By: #### T SH, BMP #### [facility] [address] [place] [address] Dr. Thelma Carlson EGFR-AF SRI LANKAN >60 Normal >=60 [facility] Comment on above: Performed By: #### T SH, BMP #### [facility] [address] [place] [address] Dr. Thelma Carlson EGFR-NON AF SRI LANKAN >60 Normal >=60 [facility] Comment on above: Performed By: #### T SH, BMP #### [facility] [address] [address] [address] Thelma Carlson Glucose [Mass/Vol] 142 mg/dL Critically high 74-106 [facility] Comment on above: Performed By: #### T SH, BMP #### [facility] [address] [address] [address] Thelma Carlson Potassium [Moles/Vol] 4.5 mmol/L Normal 3.5-5.1 [facility] Comment on above: Performed By: #### T SH, BMP #### [facility] [address] [address] [address] Thelma Carlson Sodium [Moles/Vol] 139 mmol/L Normal 136-145 [facility] Comment on above: Performed By: #### T SH, BMP #### [facility] [address] [address] [address] Thelma Carlson Urea nitrogen [Mass/Vol] 25.0 mg/dL Critically high 7.0-18.0 [facility] Comment on above: Performed By: #### T BRADFORD, BMP #### [facility] [address] [address] [address] Thelma Carlson Urea nitrogen/Creatinine [Mass ratio] 25.0 mg/mg Normal [facility] Comment on above: Performed By: #### T BRADFORD, BMP #### [facility] [id number] Thelma Carlson TSHon 04-21-2022 TSH 2.012 uIU/mL Normal 0.358-3.740 [facility] Comment on above: Performed By: #### T BRADFORD, BMP #### [facility] [address] [address] [address] Thelma Carlson Coding Summaryon 11-13-2021 Coding Summary HTMLBase 64 TdzhdkupZDp1mDk+PGh lYWQ+OD2MOPZaU03qcE CdiL5BC7dFSS4MKNLPS AHERL8YEK6mfGZ6NAnm X3PpyrKq ZpzihWGaIB29OZf6LMN 0kPcjKFvhgD1lgQIuS0 r3LxSaCB72uD57OTawE AOwWkX6ZsRmjlehyNXn T5faKkBhpNSkJon+PHR hYmxlIHdpZHRoPScxMD LaVbMjkPgpYG4nQv5nU GVyLWNvbGxhcHNlOiBj m5umCFNzHSpsBH7hpFn dD6XlwDG9ZLLpk7s6To 48dHI+BGHvIEV0wXqsF Nsie069FbMgl9ztFIJ2 bUOeRSefOPB1T58gp2R 3EPCeBLSzEQJ1pJH0rS 1mhXemtjfgJ8WzjVGwF rA5WVZ0nNDnaY2xwLsq xvcmcT5tYxy+Q32UFV8 LTKZHPG5AViy1G1DgRb wvdHI+PR80ETNnFT74a NGzqSAdq1emjYc0ZgXl XULwQPP3zKtjXUmjx7X qWWXnL42ceXNvu9W2LJ GrlCvueUHyFxJkjKY9p E6zFPjcyglnz3ubxcdm Skchs1jwhm67cA70N92 nPKjdMUUpAWJ9QTNhOQ QrmLknlf1luH1pQt1+I Yljy3yau8gzwLo0EvAq IDInlvKqaZihTWE7w2K kTi60Q9HhdBhwi4QaHv a8nk32tKFbu7B4kAT7Q YvlCVPvxE0mWDueWdP3 OEVhUpQtvU68xKEhIBi qNr1cfWfyvPmcRX7nPG RzsufrKWFnrO2aWLBvn OGqsJmkGP3hERSkyorn w182IzQfDBX5FKOngSA tT7PyjI7lPfWwDACiAU EnF8XecTFjMEkoY790H DxhTeO0SQAqfeGdL8Ry CBBhqRizIwH7z4B8Ts8 Fn7DmxkwnFRT1DJplLI F7MsX6IjTvKzB5U0IdI bf6TGUdrKcbSP8rM9Bu XZErfmoasuedsAL4DHY aSFLesP78pXNvTYxaMf 9mp5T5j128UNXhRZTzh Y11Va6zaTtcOGMadLRM xM0bcnyfm8cjbfblWnE mZYBwYNk1FHr4CMMieG azWgWjXRX5NxJ3CVD8u FDcaF2ciBwbkistpQ0v Oyc+M16hvS8rURB7MCN 7ydvrWGRkabMfNF95BQ 55J7KxEvdgmSBsoVK+P NXmmmKhtUseXG2lBtVc b9cay7SdGBbmV0ZeQGB rUSgnKko5EZTgRUV2mP W0pQ3sYKBjRWssp8Z6m RF5W4DhouNsdk0ag2vi ZVBoFNoyV85xbXFxx0Y 5KDJdhVR0DXWriXvbRq MvsH17Fhh+PGNvbGdyb 3JiLaarx0wxi6sosIa5 IjMwJSIgdmFsaWduPSJ 6q9PgMv00L73tGEbyRO RoPSIxNSUiIHZhbGlnb q7lrI9sHz5+PGNvbCB3 yJO5dQ0iDUDpWrM8TFy pV334MyPioWMbDrfzv7 teo4mveNu6CmBvQKPsw ePpeFrwIID5s4NtOf78 Q29uSAbqGNXyRRXiUUE lZGPkrRixgl2fsY1hDg 8+ED3fh5oetc48yB17p HI+DDNhASD5kKbpBDii OERwvA6eDLdwUsN7AQF tUdTmsR99iJDlBGeyFe 0pfQhkpTivKP8lJLWki cfsh092HwVkh2igUJBx tILbCQzgXPY5J20gu1I 0QALrVJYkOJD7oOW8lG 1hbGlnbjogbGVmdDsgd oYngXgaBMumIMsnA240 IHRvcDsnPlBhdGllbnQ jIxIdLRi2G2GgRrk7YW GxhWqfGO2xxGMuRWwzB t5kfBzkiFbhJU1rOBTo rlgxr519CcHwd4jhOUN asUZrQVtuUKD2Y88bu8 X3AEKnYCNhVRA7kAU8g T7ruPctniaasDTbfCpv psXwfHdxMVrdEDshM75 6IHRvcDsnPkJpcnRoIE CwwDE4BT29XX91pHSce 2A7zNI9W2WrCPOdzmkw muclfRK2SFAnMZGqbM2 2Nq1stDetCi8jPBOpQP U6WXMyaYGxX1OmnH5fO pXlCTDcOVSoD5CdwVGd KNhnQ199OVijQaN5ORO tihVrB2PmHAFkfGrrUd R8f6C1Dl0EX8H4XA41M E42bTXbk4V0xKX8M1On MCRxwjgufjpqiKV9HAK xQQNbbC35Jn2noBegHo 0kLDDgDKE2TMFcnHXdU 9JnrJ6sQtRtOFCsULSn D4FpwYNgIHphG771ELj uQgE2RLTsohBnK8KeSG YeyYhaIiH3l6L5Bi3TG Zp7AR14RX86hGEbr4Y1 lGD5J7UvYAMltlkttnh kdKD2BTZtBMZdwN77Dy 3ieNnoRd3yUNVnYKS4N UWgrMWwE5SjyM3fDxTr HDRwANFgW3PqaWAcUOn wE961BUggNpM9CTFmpe HoT8WzOPJfwIfuAtM2l 8D6Lq2OUCBfPJ98GAF1 fTH2WS71NN26N9TyHnm vdGFibGU+PHRhYmxlIH dpZHRoPScxMDAlJyBzd FaaVA4sVe1iJENwIGQe jQbolUIrEeEyv9ejREZ sYIxxRY2peCnuI8OnbN O1WTPwn7t9Eq71I71fM 3JvdXA+IICqsNH8fOP9 jN9dTbQcTgK1WLneT56 3QqSxzLToPzcbh1urd0 iigMh2NuT0YTYhwgDma VsjBRR0z5WeCn46N17b IHdpZHRoPSIxNSUiIHZ cpErisw9omI2fVm0+PG QwvGI1wGA5yR4hUmAsR oU6POdwA200FkTfbXIp Uwebo9mjs1zorVt0KvO dWMMjdxHdbOvvWRV5k3 KnQu39H0NalGobv2DfT gc4de82aAKqm6D6xPM7 I4PdTFQhuxpwgPHutKs rKO1wOOQwavoqVXOxiE 1eHYVxV1l7CeGkQcZ8J SmbC7SngdE1NGNawOAf IRszWOG6D43wf1M1NHU hZHEkFRD3nLH9dN5ojN lnbjogbGVmdDsgdmVyd QvjMOpsMOyzR188HVPe wGzzAVVtgA9xDWVrtTS twMarOP9kHWSjzopzWj 3DRWiTUirwGi1PZJZrH TwvdGQ+UKXnUVW9iOmf SYnqJIKnhB0dBGQgT3d 4TwJuQvA5JGkjK7ZyHW EstmhiOv09vO4qWdKwT nO9CJduL3NwzoN7CJSe rJVfCRayVES0M12vy5U 7NSTvOMMrLLE2kAO0dN 1hbGlnbjogbGVmdDsgd iXrrLjmHJcfGEcmZ602 EQRuyDasWgG5DjRzCkM 2GAR9D0OxAjz8BGYmfN ynPB5gpAIrNVglDy2mr WuhrTnaVK2sOBOsixza KGVhxN1uAPHwiTMhaPu gLN7sYBTjyarym117Ip VxCWT8QNOfnMYyA3Hvo H3rDqMiYSQwCWKbJ5Wh mIJyALtfJ559ZHkdOsV 2PANrofStQ0GuNVLsiB npGvB9t1H7Ko85RwCKW WFyczwvdGQ+PHRkIHN0 jZzfZVipOLPugW1rPXZ hJ1v7NeXyOyD0ORytO2 PeGPDvfatlNz74nE4aQ bZpRwU8MGeqM9FnafT8 BFCwuUPnNRalECI1J62 dh7R4CRCqRIBzCQZ2wD G3uK3ggNyxqevycBWsv DsgdmVydGljYWwtYWxp J127GUJpkQtbBr0TBCV 8N4LxSkx7BFPgjQoaPR 9orGLkVTbmDj6neLtgv OklBA9nLNAwytywUSWu gP9wEACniSEugHkmZA2 pYRHdaiktf073GrSeHE J4WWGahYJlD4GkqC7xR nUvCPMaYCReT6DcrKSk NRbtI665OAgfPwU9UZV rysYkG7QgUOZfpFewRd B9i6Z6Gb6ETHmrjFT+P J62it81N9WoKfjyWnw0 KWXdMXL9eNX7mH9wHPH ySPrjq4J6fLF7K0Wggs Wknv1jc2niMIYmTZjmG 62ulZFkg1K3QEZtxTI3 CFIxkGshIiBnjF14Hyz +OIYarKlhr0LuWogjs3 yvz4lacIb9PnYhJUGef zWquNbaKKF2j9ZnRn02 E62mTRewAOSlONZzUBT oRLAryPjhou1xqT1lQx 8+WYJeoPJ8mJV6yE4hD yBgCoA5ZGafJ290ZoXj cWKuTaunr5zbz6wsaIi 9IjIwJSIgdmFsaWduPS P2f2NiHb54I2BnaRrdz 5RnXui2gc18qOKoc5C4 jTZ6T9VqFYRbeehdiNL lsZznIP4dNRVpgefzHG IkkN0cARSpW7p7MfSwB eD9MIgtF7WlbcH1WWSf yNXaYTCshBMMwI5bjom ul0uwpqpyZjMoARUoJG p3TIl5BCTvhGsqQsYhV SK7ArI3KXB3jPHocC8v cUmrvvjbtN8zKak+UGh 7y0qibJJjDE9vuWK0UA 05GJ27gCTuq9O3eGX4U 2ErCXBsdhiytnzhoVZ1 JXJvCUTwsN01Te2vbYv wOc2lEWAnOTD1HUQtcQ ThG0AncJ8dWbZkSJGlQ KPlI3RnzTLyTKqxU242 KRbeQgR4WWGdkyQzW3V wMHPlaRyhGuJ5x2M2Rt 2EUK62SX43GB07bDNai 8I4hBM5W5TjTFTiziln vjbpiGB6ONXdTMXqiK2 5Sv2vcZxtIt8uYJHrUB A3XFGilQKhG5KkiN9fA eUwLKLbGBWyR4MryAWj ZEhqS617MNfnFvP3ZQS atlLlK0TuIKBkxZvzZp B5v1U8Ht0IPj21DE42V U53xPTca4H3aLF7Z9Ou NYQkcnbyqlhiqMZ0KVY yCYQriP90Ul6ieWetLs 2cRQFcHBH3ZRRttNUsD 9KjcW3uRtKdEDHkUKRx K2FzjNOtXErsR325WCz hXiG5WVZpwcIpQ7EwZL HuhNblAjR1l0C5Ag0KP Qwwytu5I6OtWjaffDK+ FD77UMDqLC79lCJjuOS yb5qywXp1FnIdXBVnQB V1yMvzYAkvw3PqHBPoE 59arIFkp3I3DZMncDzt cHN (more content not included)... [facility] Provider Orderson 11-13-2021 Provider Orders [id number] [facility] US LE Venous Duplex [place] 11-10-2021 US [...] Osvaldo Valdez 11/10/21 5:45 pm Technologist: RITA [facility] Vital Signs Date Time Vital Sign Value Performing Clinician Facility 08-14-2024 09:09-0400 Body height 170.18 cm [facility] 08-14-2024 09:09-0400 Body mass index (BMI) [Ratio] 36 kg/m2 [facility] 08-14-2024 09:09-0400 Body weight 104.38 kg [facility] 08-14-2024 09:09-0400 Diastolic blood pressure 89 mm[Hg] [facility] 08-14-2024 09:09-0400 Heart rate 60 /min [facility] 08-14-2024 09:09-0400 Respiratory rate 12 /min [facility] 08-14-2024 09:09-0400 Systolic blood pressure 139 mm[Hg] [facility] 02-14-2024 10:29-0400 Body height 170.18 cm [facility] 02-14-2024 10:29-0400 Body mass index (BMI) [Ratio] 37.6 kg/m2 [facility] 02-14-2024 10:29-0400 Body weight 109.03 kg [facility] 02-14-2024 10:29-0400 Diastolic blood pressure 91 mm[Hg] [facility] 02-14-2024 10:29-0400 Heart rate 64 /min [facility] 02-14-2024 10:29-0400 Respiratory rate 12 /min [facility] 02-14-2024 10:29-0400 Systolic blood pressure 180 mm[Hg] [facility] 02-26-2023 08:30-0400 Body height 170.18 cm Chace Ball Other [facility] Other 02-26-2023 08:30-0400 Body mass index (BMI) [Ratio] 35.96 kg/m2 Chace Ball Other [facility] Other 02-26-2023 08:30-0400 Body weight 104.15 kg Chace Ball Other [facility] Other 02-26-2023 08:30-0400 Diastolic blood pressure 90 mm[Hg] Chace Ball Other [facility] Other 02-26-2023 08:30-0400 Respiratory rate 12 /min Chace Ball Other [facility] Other 02-26-2023 08:30-0400 Systolic blood pressure 157 mm[Hg] Chace Ball Other [facility] Other 08-25-2022 16:00-0400 Body height 170.18 cm Chace Ball Other [facility] Other 08-25-2022 16:00-0400 Body mass index (BMI) [Ratio] 38.02 kg/m2 Chace Ball Other [facility] Other 08-25-2022 16:00-0400 Body weight 110.13 kg Chace Ball Other [facility] Other 08-25-2022 16:00-0400 Diastolic blood pressure 84 mm[Hg] Chace Ball Other [facility] Other 08-25-2022 16:00-0400 Respiratory rate 12 /min Chace Ball Other [facility] Other 08-25-2022 16:00-0400 Systolic blood pressure 148 mm[Hg] Chace Ball Other [facility] Other 08-19-2022 09:30-0400 Body height 170.18 cm Chace Ball Other [facility] Other 08-19-2022 09:30-0400 Body mass index (BMI) [Ratio] 38.09 kg/m2 Chace Ball Other [facility] Other 08-19-2022 09:30-0400 Body weight 110.32 kg Chace Ball Other [facility] Other 08-19-2022 09:30-0400 Diastolic blood pressure 86 mm[Hg] Chace Ball Other [facility] Other 08-19-2022 09:30-0400 Respiratory rate 12 /min Chace Ball Other [facility] Other 08-19-2022 09:30-0400 Systolic blood pressure 146 mm[Hg] Chace Ball Other [facility] Other Encounters Encounter Date Encounter Type Care Provider Facility Start: 08-14-2024 End: 08-14-2024 ambulatory [facility] Work Phone: Start: 08-14-2024 End: 08-14-2024 Patient encounter procedure [facility] Physician [facility] Work Phone: Start: 08-10-2024 Patient encounter procedure [facility] Start: 03-06-2024 End: 03-06-2024 ambulatory [facility] Work Phone: Start: 03-06-2024 End: 03-06-2024 Patient encounter procedure [facility] Work Phone: Start: 02-21-2024 Non-patient / Non-visit [facility] Professional [employer] Work Phone: Start: 02-14-2024 End: 02-14-2024 ambulatory [facility] Work Phone: Start: 02-14-2024 End: 02-14-2024 Patient encounter procedure [facility] Work Phone: Start: 10-21-2023 End: 10-21-2023 ambulatory [facility] Work Phone: Start: 10-21-2023 End: 10-21-2023 Patient encounter procedure [facility] Work Phone: Start: 06-16-2023 End: 06-16-2023 ambulatory Chace Montejo Other [facility] Other Start: 06-16-2023 Telephone encounter Chace Montejo [facility] Start: 02-26-2023 End: 02-26-2023 ambulatory Chace Montejo Other [facility] Other Start: 02-26-2023 Office outpatient vi sit 25 minutes Chace Ball [facility] Start: 02-08-2023 End: 02-08-2023 ambulatory Magiphi Greenwood Other [facility] Other Start: 02-08-2023 Nursing evaluation o f patient and report Magi Greenwood [facility] Start: 12-25-2022 End: 12-25-2022 ambulatory Chace Montejo Other [facility] Other Start: 12-25-2022 Telephone encounter Chace Montejo [facility] Start: 08-25-2022 End: 08-25-2022 ambulatory Chace Gabino Other [facility] Other Start: 08-25-2022 Office outpatient vi sit 15 minutes Chace Ball [facility] Start: 08-19-2022 Office outpatient vi sit 25 minutes Chace Ball [facility] Start: 08-19-2022 End: 08-20-[address] CHACE MONTEJO Facility:[facility] Start: 04-21-2022 Adult health examination Chace Montejo Other [facility] Other Start: 04-21-2022 End: 04-22-[address] CHACE MONTEJO Facility:[facility] Procedures Date Procedure Procedure Detail Performing Clinician Start: 04-21-[address] ALBERTO IN GABINO Comment on above: Performed By: #### [facility] #### [facility] [address] [place] [address] Dr. Thelma Carlson Start: 09-20-2018 End: 10-02-2019 General examination of patient Chace Montejo Other Start: 09-20-2018 End: 10-02-2019 Screening for malignant neoplasm of prostate Chace Montejo Other Depression screening Bennie Montejo Other Screening for malign ant neoplasm of colon Chace Montejo Other Screening for malign ant neoplasm of prostate Chace Montejo Other Plan of Treatment Date Care Activity Detail Author Comprehensive metabo lic 1999 panel - Serum or Plasma [facility] enter Comprehensive metabo lic 1999 panel - Serum or Plasma [facility] enter [place] Lower extremity vein - right [facility] Immunizations Immunization Date Immunization Notes Care Provider Fa cility 02-26-2023 influenza virus vaccine, unspecified formulation [facility] 02-26-2023 influenza, high dose seasonal, preservative-free Chace Montejo Other [facility] Other 04-21-2022 influenza virus vaccine, split virus (incl. purified surface antigen) Chace Montejo Other [facility] Other 04-21-2022 influenza virus vaccine, unspecified formulation [facility] 04-21-2022 Prevnar 20 Chace Montejo Other [facility] 11-14-2021 tetanus and diphther ia toxoids, adsorbed, preservative free, for adult use (5 Lf of tetanus toxoid and 2 Lf of diphtheria toxoid) Chace Montejo Other [facility] 08-31-2021 COVID-19 Vaccine Moderna - Documentation Purposes Only Chace Montejo Other [facility] 03-24-2021 COVID-19 Vaccine Moderna - Documentation Purposes Only Chace Montejo Other [facility] pneumococcal Conjuga te, unspecified formulation; Translations: [Need for prophylactic vaccination against Streptococcus pneumoniae (pneumococcus)] Chace Montejo Other [facility] Other Payers Date Payer Category Payer Medicare [id number] 1960 Unknown [id number] 1955 Unknown [id number] 1955 Unknown [id number] Unknown [employer] [place] [id number] Social History Date Type Detail Facility Sex Assigned At [facility] Other Start: 1955 Sex Assigned At Male [facility] if [facility] Work Phone: Start: 08-14-2024 Sex Male (finding) [facility] Procedure Code Equipment Code Equipment Origin al Text Equipment Identifier Dates Blood Sugar Diagnostic (Onetouch Ultra Test) strip Start: 03-15-2024 Blood Sugar Diagnostic (Onetouch Ultra Test) strip Start: 03-14-2024 End: 03-15-2024 Clinical Notes 08-19-2022 to 02-26-2023 Note Date & Type Note Facility [...] kneeling. IA injection, PT for severe discomfort [facility] Other 09-11-2023 Evaluation note* Encounter Date Diagnosis Assessment Notes Treatment Notes Treatment Clinical Notes Jan, Seasonal allergic rhinitis due to pollen (ICD-10 - J30.1) [facility] Other 03-28-2023 Evaluation note* Encounter Date Diagnosis Assessment Notes Treatment Notes Treatment Clinical Notes Jul, Primary hypertension (ICD-10 - I10) This patient is instructed to consume a healthy, low-fat, low-salt diet. They are also encouraged to continue exercise to achieve/maintain a normal BMI. Jul, Primary osteoarthritis of right knee (ICD-10 - M17.11) Quad execises, ice/heat and Tylenol. Continue Lodine IA injection if desires Jul, Inflamed skin tag (ICD-10 - L91.8) Jul, Seborrheic keratoses , inflamed (ICD-10 - L82.0) [facility] Other 03-22-2023 Evaluation note* Encounter Date Diagnosis Assessment Notes Treatment Notes Treatment Clinical Notes Jul, Primary hypertension (ICD-10 - I10) This patient is instructed to consume a healthy, low-fat, low-salt diet. They are also encouraged to continue exercise to achieve/maintain a normal BMI. Jul, Type 2 diabetes [...] (ICD-10 - N40.1) Symptoms tolerable. Yearly PSA [facility] Other 03-22-2023 NotePROCEDURE: XR KNEE RT 3V HISTORY: Idiopathic osteoarthritis COMPARISON: None. FINDINGS: [...] Electronically authenticated by: CED MANE Date: 2022-08-19 10:37[facility] Other Evaluation noteNo assessment information available [facility] Work Phone: Evaluation note* Diagnosis Onset Date Resolution Status MILDRED (obstructive sleep apnea) acute Primary hypertension acute Swelling of right lower extremity acute Type 2 diabetes mellitus with hyperglycemia acute [facility] Work Phone: Evaluation note* Diagnosis Onset Date Resolution Status Obesity acute MILDRED (obstructive sleep apnea) acute Post-traumatic arthritis of left ankle acute Primary hypertension acute Swelling of right lower extremity acute Type 2 diabetes mellitus with hyperglycemia acute [facility] Work Phone: Evaluation note* Diagnosis Onset Date Resolution Status Admit Date Hypercholesterolemia acute Jordy h 2024 9:02am Medicare annual wellness vis it, subsequent acute August 14, 2024 9:02am Obesity acute August 14 9:02am MILDRED (obstructive sleep apnea) acute August 14, 2024 9:02am Post-traumatic arthritis of left ankle acute August 14, 2024 9:02am Primary hypertension acute Jordy h 2024 9:02am Screening PSA (prostate spec ific antigen) acute August 14, 2024 9:02am Swelling of right lower extremity ac mel August 14, 2024 9:02am Type 2 diabetes mellitus wit h hyperglycemia acute August 14, 2024 9:02am [facility] Work Phone: History general Narrative - Reported* Type Description Date Medical History Cellulitis of leg, right Medical History Traumatic arthritis of right ank le Medical History COVID Medical History Abrasion of right knee, initial encounter Medical History Right leg swelling Medical History Erectile dysfunction due to meggan rial insufficiency Medical History Male pattern baldness Medical History Acute allergic rhinitis due to p ollen Medical History Gastroesophageal ref lux disease with esophagitis without hemorrhage Medical History Coronary artery spasm Medical History Fatigue Medical History Hyperlipidemia type II Surgical History TONSILLECTOMY Surgical History HERNIA REPAIR 2012 Surgical History APPENDECTOMY Surgical History SEPTOPLASTY Surgical History ETHMOIDECTOMY Surgical History PRIF LEFT TIBIA/FIBULA FX Surgical History COLONOSCOPY Surgical History [facility] Hospitalization History SEE SURGICAL HX [facility] Other Summary Purpose Family History Relationship Condition Age at Onset Recorded Date/T hans Not Specified Malignant neoplasm Unknown Malignant neoplasm of breast Unknown Relationship Condition Age at Onset Recorded Date/T hans mother Malignant neoplasm Unknown Malignant neoplasm of breast Unknown Advance Directives Advance Directive Response Recorded Date/ Time Advance Directives No October 20 4 11:56am Advance Directive Response Recorded Date/ Time Advance Directives No August 14 025 10:04am Chief Complaint and Reason for Visit Chief Complaint allergy shot Chief Complaint Cellulitis/Other Con cerns Reason for Visit MILDRED (obstructive sle ep apnea) Primary hypertension Swelling of right lower extremity Type 2 diabetes mellitus with hyperglycemia Chief Complaint Cellulitis/Other Con cerns Amb Documentation allergy shot Reason for Visit Obesity MILDRED (obstructive sleep apnea) Post-traumatic arthritis of left ankle Primary hypertension Swelling of right lower extremity Type 2 diabetes mellitus with hyperglycemia Chief Complaint Admit Date Wellness August 14, 2024 9:0 2am Reason for Visit Admit Date Hypercholesterolemia August 14, 2024 9: 02am Medicare annual wellness visit, subseque nt August 14, 2024 9:02am Obesity August 14, 2024 9:0 2am MILDRDE (obstructive sleep apnea) July 9:02am Post-traumatic arthritis of left ankle M arch 2024 9:02am Primary hypertension August 14, 2024 9: 02am Screening PSA (prostate specific antigen ) August 14, 2024 9:02am Swelling of right lower extremity August 14, 2024 9:02am Type 2 diabetes mellitus with hyperglyce yoav August 14, 2024 9:02am Additional Source Comments (unrecognized sect ion and content) No Status Records FoundNo Status Records Found INFORMATION SOURCE (unrecogn ized section and content) DATE CREATED AUTHOR 11/14/2021 [facility] DATE CREATED AUTHOR AUTHOR'S ORGANIZ ATION 08/23/2022 [facility] REASON FOR VISIT (unrecogniz ed section and content) 4 MONTH FOLLOW UP1 wk follow upConcernsAllergy Shot6 month Follow up6 month Follow upLab results Care Teams (unrecognized sec tion and content) Team Status: Active Member Role Status Heather Montejo DO Primary Care Provider Active Team Status: Inactive Member Role Status Heather Montejo DO Primary Care Provide r, Attending Provider Active Start: October 21, 2023 End: October 21, 2023 Team Status: Inactive Member Role Status Heather Montejo DO Primary Care Provide r, Attending Provider Active Start: February 14, 2024 End: February 14, 2024 Team Status: Active Member Role Status Dates Chace Montejo DO Primary Care Provider Active Start: February 21, 2024 Nenita Olivera LPN Attending Provider Active Start: February 21, 2024 Team Status: Inactive Member Role Status Heather Montejo DO Primary Care Provide r, Attending Provider Active Start: March 06, 2024 End: March 06, 2024 Team Status: Inactive Member Role Status Heather Montejo DO Primary Care Provide r, Attending Provider Active Start: August 14, 2024 End: August 14, 2024 Goals (unrecognized section and content) Goals may [...] BE BASED ON THE PRIMARY CLINICAL RECORDS. [facility]. provides no warranty or guarantee of the accuracy or completeness of information in this document.
[2024-08-14 11:10] LABS: Basophils Percent Auto 0.4 % (0.2-2.0); Eosinophils Absolute Auto 0.1 10^3/uL (0.0-0.7); Eosinophils Percent Auto 1.3 % (0.9-7.0); Hematocrit 43.9 % (42.0-54.0); Hemoglobin 14.8 g/dL (14.0-18.0); Immature Granulocytes Abs Auto 0.01 10^3/uL (0.00-0.03); Immature Granulocytes Pct Auto 0.2 % (0.0-0.5); Lymphocytes Absolute Auto 1.4 10^3/uL (1.2-3.8); Lymphocytes Percent Auto 30.5 % (20.5-60.0); Mean Corpuscular HGB Conc 33.7 g/dL (29.9-35.2); Mean Corpuscular Hemoglobin 30.8 pg (25.9-34.0); Mean Corpuscular Volume 91.3 fL (80.0-94.0); Mean Platelet Volume 9.3 fL (9.5-13.5); Monocytes Absolute Auto 0.5 10^3/uL (0.3-0.8); Monocytes Percent Auto 11.1 % (1.7-12.0); Neutrophils Absolute Auto 2.6 10^3/uL (1.4-6.5); Neutrophils Percent Auto 56.5 % (43.0-75.0); Platelet Count 227 10^3/uL (150-450); Red Blood Count 4.81 10^6/uL (4.70-6.10); Red Cell Distribution Width 12.2 % (11.0-15.0); White Blood Count 4.6 10^3/uL (4.0-11.0)
[2024-08-14 11:20] LABS: Estimated Average Glucose 117 mg/dL; Glycohemoglobin A1C 5.7 % (4.5-6.2)
[2024-08-14 11:21] LABS: Creatinine Urine Random 92.66 mg/dL (20.00-300.00); Microalbumin Urine Random <1.3 mg/dL (<=30.0)
[2024-08-14 11:22] LABS: Alanine Aminotransferase 20 U/L (16-63); Albumin Globulin Ratio 1.2; Alkaline Phosphatase 62 U/L (46-116); Anion Gap 9.5; Aspartate Amino Transferase 18 U/L (15-37); BUN Creatinine Ratio 18.2; Bilirubin Total 0.5 mg/dL (0.2-1.0); Carbon Dioxide 30.3 mmol/L (21.0-32.0); Chloride 105 mmol/L (98-107); Chol HDL Ratio 3.1; Cholesterol 140 mg/dL (<=200); Estimated GFR (African America >60 (>=60 mL/min/1.73m^2); Estimated GFR (Non-African Ame 59 (>=60 mL/min/1.73m^2); Globulin 3.3 g/dL; Glucose 107 mg/dL (74-106); HDL Cholesterol 45 mg/dL (40-60); LDL Cholesterol Calculated 68.2 mg/dL; Potassium 4.8 mmol/L (3.5-5.1); Sodium 140 mmol/L (136-145); Total Protein 7.3 g/dL (6.4-8.2); Triglycerides 134 mg/dL (<=150); VLDL CHOLESTEROL 26.8 mg/dL
[2024-08-14 11:59] LABS: Prostate Specific Antigen Scrn 0.28 ng/mL (<=4.00)
== END 2024-08-14 10:21 | disposition home or self-care (01) ==
LOC: LAB 10:23
PROVIDERS: PCP Internal Medicine; Visit Provider Internal Medicine
DX: G47.33 Obstructive sleep apnea (adult) (pediatric) (principal); E11.65 Type 2 diabetes mellitus with hyperglycemia; I10 Essential (primary) hypertension; R53.83 Other fatigue; E78.00 Pure hypercholesterolemia, unspecified; Z12.5 Encounter for screening for malignant neoplasm of prostate
CPT/HCPCS: 36415; 80053; 80061; 82043; 82570; 83036; 85025; G0103